=== PATIENT | female | born 1995 | race Caucasian/White ===

== ENCOUNTER 2024-02-26 10:23 | Emergency (ER) | payer OTHER, BC, SELFPAY ==
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
[2024-02-26 11:00] VITALS: BP 119/68; PULSE 86; RESP 16; TEMP 36.6; O2SAT 99
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
== END 2024-02-26 12:48 | disposition home or self-care (01) ==
PROVIDERS: Emergency Provider Nurse Practitioner Family
DX: S63.502A Unspecified sprain of left wrist, initial encounter (principal); S63.617A Unspecified sprain of left little finger, initial encounter; V43.52XA Car driver injured in collision with other type car in traffic accident, initial encounter
CPT/HCPCS: 29130; 73110; 73140; 99203; G0463

== ENCOUNTER 2024-03-07 05:17 | Emergency (ER) | payer BC, SELFPAY ==
--- NOTE | ~2024-03-07 | CT_ITS ---
EXAMINATION: CT abdomen pelvis w con DATE: 03/07/2024 08:11 INDICATION: Left lower quadrant abdominal pain. TECHNIQUE: Computed tomography (CT) of the abdomen and pelvis was performed with 100 mL Omnipaque 350 intravenous contrast. Automated exposure control and iterative reconstruction technique were employe d. The dose-length product was 314.16 mGy-cm. COMPARISON: None. FINDINGS: The visualized portions of the lung bases are clear without pneumonia or pleural effusion. The heart size is normal. No pericardial effusion. The liver, gallbladder, spleen, pancreas, adrenal glands, and right kidney are normal. There is a delayed left-sided contrast nephrogram. There is mild left hydronephrosis and hydroureter. There is a 2 mm stone at left ureterovesicular junction. There are no dilated loops of bowel. The appendix is normal. There are no pathologically enlarged lymph nod es. There is physiologic fluid in the pelvis. There is mild lumbar spondylosis. IMPRESSION: 1. 2 mm stone at left ureterovesicular junction with mild left hydronephrosis and hydroureter. Reviewed, dictated and finalized at location A. ORIZATION SPECIALIST
[2024-03-07 05:22] VITALS: BP 111/72; PULSE 61; RESP 19; TEMP 36.3; O2SAT 98
[2024-03-07 05:56] LABS: Basophils Absolute Auto 0.1 K/mm3 (0.0-0.1); Basophils Percent Auto 0.6 % (0.2-1.2); Eosinophils Absolute Auto 0.3 K/mm3 (0-0.3); Eosinophils Percent Auto 2.5 % (0-4.4); Hemoglobin 13.2 g/dL (12.0-15.0); Immature Granulocyte Absolute 0.05 K/mm3 (0.00-0.031); Immature Granulocyte Percent A 0.4 % (0-0.5); Lymphocytes Absolute Auto 3.57 K/mm3 (0.9-3.2); Lymphocytes Percent Auto 30.9 % (18.3-44.2); Mean Corpuscular HGB Conc 33.8 g/dl (32-36); Mean Corpuscular Hemoglobin 29.6 pg (26-34); Mean Corpuscular Volume 87.4 fl (80-100); Mean Platelet Volume 8.7 fl (7.4-10.4); Monocytes Absolute Auto 0.8 K/mm3 (0.1-0.6); Monocytes Percent Auto 7.1 % (2.6-8.5); Neutrophils Absolute Auto 6.8 K/mm3 (1.3-6.7); Neutrophils Percent Auto 58.5 % (45.5-73.1); Platelet Count Result 424 k/mm3 (150-375); Red Blood Count 4.46 M/mm3 (4.2-5.4); Red Cell Distribution Width 12.2 % (11.5-14.5); White Blood Count 11.6 K/mm3 (4.5-10.0)
[2024-03-07 06:06] LABS: Alanine Aminotransferase 15 U/L (6-35); Albumin Level 4.4 g/dL (3.5-5.1); Alkaline Phosphatase 88 U/L (38-126); Anion Gap 8 mmol/L (4-12); Aspartate Amino Transferase 23 U/L (14-36); Bilirubin,Total 0.6 mg/dL (0.2-1.3); Blood Urea Nitrogen 19 mg/dL (7-17); Calcium 9.1 mg/dL (8.4-10.2); Carbon Dioxide 20 mmol/L (22-30); Chloride 110 mmol/L (98-107); Estimated CRCL calculation 70 ml/min; Estimated Glomerular Filt Rate > 60; Glucose 108 mg/dL (65-110); Lipase 120 U/L (23-300); Potassium 3.8 mmol/L (3.4-5.0); Sodium 138 mmol/L (137-145)
[2024-03-07] MEDS: ONDANSETRON INJ 4 MG/2 ML VIAL IV PUSH (06:11)
[2024-03-07] MEDS: MORPHINE SULFATE (*CRX) 4 MG/ML INJ IV PUSH (06:12)
[2024-03-07] MEDS: SODIUM CHLORIDE 0.9% IV 1,000 ML 999 ML IV CONT (06:12)
--- NOTE | 2024-03-07 06:45 | ED.GENADULT ---
HPI - General Adult General Chief complaint: Nausea/Vomiting/Diarrhea <Toni Mills MD - Last Filed: 03/07/24 06:46> Stated complaint: Lower left back/abd pain, N/V <Toni Mills MD - Last Filed: 03/07/24 06:46> Time Seen by Provider: 03/07/24 06:41 <Toni Mills MD - Last Filed: 03/07/24 06:46> History of Present Illness HPI narrative: Patient 27-year-old female who presents emergency department with chief complaint of left flank and left lower quadrant pain. Patient reports this morning she had sudden onset of sharp pain in the left flank reports that radiates to the left lower quadrant the patient reports feels similar to whenever she has had kidney stones before in the past patient reports pain is not improved by anything reports she has had nausea with it as well <Toni Mills MD - Last Filed: 03/07/24 06:46> Related Data Home medications: Home Medications ?Medication ?Instructions ?Recorded ?Confirmed ?Last Taken ?Type escitalopram oxalate 20 mg tablet 20 mg PO DAILY 02/26/24 02/26/24 Unknown History hydroxyzine pamoate 25 mg capsule 25 mg PO Q6H PRN anxiety 02/26/24 02/26/24 Unknown History norethindrone 1 mg-ethinyl 1 tablet PO DAILY 02/26/24 02/26/24 Unknown History estradiol 20 mcg (21)-iron 75 mg (7) tablet (Aurovela Fe 1-20 (28)) <Toni Mills MD - Last Filed: 03/07/24 06:46> Allergies/adverse reactions: Allergies Allergy/AdvReac Type Severity Reaction Status Date / Time No Known Allergies Allergy Verified 03/07/24 05:18 <Toni Mills MD - Last Filed: 03/07/24 06:46> Review of Systems Review of Systems: A 10 system review of systems was completed on the patient and is negative except for what is stated in the HPI. Nursing and ancillary documentation was reviewed. <Toni Mills MD - Last Filed: 03/07/24 06:46> Exam Narrative: GENERAL: Well-appearing, well-nourished, and in moderate acute pain distress. HEAD: Normocephalic, atraumatic. EYES: PERRLA and EOMI. ENT: Nares clear, no rhinorrhea or epistaxis. Mucous membranes moist. NECK: Supple. CHEST: Clear to auscultation. No respiratory distress. HEART: Regular rate and rhythm. No murmur heard. Normal peripheral pulses. ABDOMEN: Soft, nontender, nondistended, normal active bowel sounds. EXTREMITIES: Normal range of motion. No edema. SKIN: Warm, dry, no rash. NEURO: No focal deficits. Alert and oriented x3. PSYCH: Normal mood and affect. <Toni Mills MD - Last Filed: 03/07/24 06:46> Course Vital Signs Vital signs: Vital Signs Temperature 97.4 F L 03/07/24 05:22 Pulse Rate 61 03/07/24 05:22 Respiratory Rate 19 03/07/24 05:22 Blood Pressure 111/72 03/07/24 05:22 Pulse Oximetry 98 03/07/24 05:22 Oxygen Delivery Room Air 03/07/24 05:22 Temperature 98.1 F 03/07/24 08:15 Pulse Rate 77 03/07/24 09:45 Respiratory Rate 15 03/07/24 09:45 Blood Pressure 121/67 03/07/24 09:45 Pulse Oximetry 100 03/07/24 09:45 Oxygen Delivery Room Air 03/07/24 05:22 <Toni Mills MD - Last Filed: 03/07/24 06:46> Vital Signs Temperature 97.4 F L 03/07/24 05:22 Pulse Rate 61 03/07/24 05:22 Respiratory Rate 19 03/07/24 05:22 Blood Pressure 111/72 03/07/24 05:22 Pulse Oximetry 98 03/07/24 05:22 Oxygen Delivery Room Air 03/07/24 05:22 Temperature 98.1 F 03/07/24 08:15 Pulse Rate 77 03/07/24 09:45 Respiratory Rate 15 03/07/24 09:45 Blood Pressure 121/67 03/07/24 09:45 Pulse Oximetry 100 03/07/24 09:45 Oxygen Delivery Room Air 03/07/24 05:22 <Raf Egan MD - Last Filed: 03/07/24 18:29> Medical Decision Making MDM Narrative Medical decision making narrative: Patient care was signed out to me by the overnight physician with CT pending. Patient is a 28-year-old female with history of kidney stones presented emergency department for evaluation for right flank pain. Patient is afebrile but does have a leukocytosis of 11.6 and hemoglobin of 13.2. No significant abnormalities on the patient's CMP UA did have blood with some white blood cells. Patient denies any actual pain with urination or dysuria. CT scan did show a right-sided 2 mm UVJ stone. On re-evaluation patient's pain is improved. Patient and family were updated on the results of the workup and treatment plan for home. All questions concerns were addressed. Patient will be started on Flomax, provided Zofran for nausea control an also provided additional narcotic pain medication. Patient will be provided follow-up with Dr. Blandon. <Raf Egan MD - Last Filed: 03/07/24 18:29> Differential Diagnosis Differential Diagnosis: Urinary tract infection, kidney stone, dysuria <Raf Egan MD - Last Filed: 03/07/24 18:29> Vital Signs Vital Signs: Vital Signs Temperature 97.4 F L 03/07/24 05:22 Pulse Rate 61 03/07/24 05:22 Respiratory Rate 19 03/07/24 05:22 Blood Pressure 111/72 03/07/24 05:22 Pulse Oximetry 98 03/07/24 05:22 Oxygen Delivery Room Air 03/07/24 05:22 Temperature 98.1 F 03/07/24 08:15 Pulse Rate 77 03/07/24 09:45 Respiratory Rate 15 03/07/24 09:45 Blood Pressure 121/67 03/07/24 09:45 Pulse Oximetry 100 03/07/24 09:45 Oxygen Delivery Room Air 03/07/24 05:22 <Toni Mills MD - Last Filed: 03/07/24 06:46> Vital Signs Temperature 97.4 F L 03/07/24 05:22 Pulse Rate 61 03/07/24 05:22 Respiratory Rate 19 03/07/24 05:22 Blood Pressure 111/72 03/07/24 05:22 Pulse Oximetry 98 03/07/24 05:22 Oxygen Delivery Room Air 03/07/24 05:22 Temperature 98.1 F 03/07/24 08:15 Pulse Rate 77 03/07/24 09:45 Respiratory Rate 15 03/07/24 09:45 Blood Pressure 121/67 03/07/24 09:45 Pulse Oximetry 100 03/07/24 09:45 Oxygen Delivery Room Air 03/07/24 05:22 <Raf Egan MD - Last Filed: 03/07/24 18:29> Lab Data Result diagrams: 03/07/24 05:50 03/07/24 05:50 <Toni Mills MD - Last Filed: 03/07/24 06:46> Labs: Lab Results 03/07/24 03/07/24 03/07/24 Range/Units 05:50 07:55 07:57 WBC 11.6 H (4.5-10.0) K/mm3 RBC 4.46 (4.2-5.4) M/mm3 Hgb 13.2 (12.0-15.0) g/dL Hct 39.0 (37.0-47.0) % MCV 87.4 (80-100) fl MCH 29.6 (26-34) pg MCHC 33.8 (32-36) g/dl RDW 12.2 (11.5-14.5) % Plt Count 424 H (150-375) k/mm3 MPV 8.7 (7.4-10.4) fl Immature Gran % (Auto) 0.4 (0-0.5) % Neut % (Auto) 58.5 (45.5-73.1) % Lymph % (Auto) 30.9 (18.3-44.2) % Lucas % (Auto) 7.1 (2.6-8.5) % Eos % (Auto) 2.5 (0-4.4) % Baso % (Auto) 0.6 (0.2-1.2) % Lymph # (Auto) 3.57 H (0.9-3.2) K/mm3 Lucas # (Auto) 0.8 H (0.1-0.6) K/mm3 Eos # (Auto) 0.3 (0-0.3) K/mm3 Baso # (Auto) 0.1 (0.0-0.1) K/mm3 Abs Immat Gran (auto) 0.05 H (0.00-0.031) K/mm3 Absolute Neuts (auto) 6.8 H (1.3-6.7) K/mm3 Absolute Nucleated RBC 0.000 (0.0-0.012) K/mm3 Nucleated RBC % 0.0 (0.0-0.2) % Sodium 138 (137-145) mmol/L Potassium 3.8 (3.4-5.0) mmol/L Chloride 110 H (98-107) mmol/L Carbon Dioxide 20 L (22-30) mmol/L Anion Gap 8 (4-12) mmol/L BUN 19 H (7-17) mg/dL Creatinine 1.00 (0.7-1.0) mg/dL Estim Creat Clear Calc 70 ml/min Estimated GFR > 60 (59 - ) Glucose 108 (65-110) mg/dL Calcium 9.1 (8.4-10.2) mg/dL Total Bilirubin 0.6 (0.2-1.3) mg/dL AST 23 (14-36) U/L ALT 15 (6-35) U/L Alkaline Phosphatase 88 (38-126) U/L Total Protein 8.0 (6.3-8.2) g/dL Albumin 4.4 (3.5-5.1) g/dL Lipase 120 (23-300) U/L Serum HCG, Qual Negative Urine Color Dark yellow (Yellow) Urine Appearance Cloudy H (Clear) Urine pH 6.5 (5.0-9.0) Ur Specific [place] 1.036 H (1.001-1.035) Urine Protein 1+ H (Negative) mg/dL Urine Glucose (UA) Negative (Negative) mg/dL Urine Ketones 1+ H (Negative) mg/dL Ur Blood (Man) 2+ H (Negative) Urine Nitrate Negative (Negative) Urine Bilirubin Negative (Negative) Urine Urobilinogen 1.0 (<2.0) mg/dL Add Ur Microanalysis Reviewed Leukocyte Esterase Rfl 1+ H (Negative) MALCOLM/UL Urine RBC 21-50 H (0-2) /hpf Urine WBC 21-50 H (0-3) /hpf Ur Squamous Epith Cells Moderate (Few) /hpf Urine Bacteria 1+ H /hpf Urine Casts 3-5 POC Urine HCG, Qual Negative (Negative) <Toni P. Lipsmeyer, MD - Last Filed: 03/07/24 06:46> Lab Results 03/07/24 03/07/24 03/07/24 Range/Units 05:50 07:55 07:57 WBC 11.6 H (4.5-10.0) K/mm3 RBC 4.46 (4.2-5.4) M/mm3 Hgb 13.2 (12.0-15.0) g/dL Hct 39.0 (37.0-47.0) % MCV 87.4 (80-100) fl MCH 29.6 (26-34) pg MCHC 33.8 (32-36) g/dl RDW 12.2 (11.5-14.5) % Plt Count 424 H (150-375) k/mm3 MPV 8.7 (7.4-10.4) fl Immature Gran % (Auto) 0.4 (0-0.5) % Neut % (Auto) 58.5 (45.5-73.1) % Lymph % (Auto) 30.9 (18.3-44.2) % Lucas % (Auto) 7.1 (2.6-8.5) % Eos % (Auto) 2.5 (0-4.4) % Baso % (Auto) 0.6 (0.2-1.2) % Lymph # (Auto) 3.57 H (0.9-3.2) K/mm3 Lucas # (Auto) 0.8 H (0.1-0.6) K/mm3 Eos # (Auto) 0.3 (0-0.3) K/mm3 Baso # (Auto) 0.1 (0.0-0.1) K/mm3 Abs Immat Gran (auto) 0.05 H (0.00-0.031) K/mm3 Absolute Neuts (auto) 6.8 H (1.3-6.7) K/mm3 Absolute Nucleated RBC 0.000 (0.0-0.012) K/mm3 Nucleated RBC % 0.0 (0.0-0.2) % Sodium 138 (137-145) mmol/L Potassium 3.8 (3.4-5.0) mmol/L Chloride 110 H (98-107) mmol/L Carbon Dioxide 20 L (22-30) mmol/L Anion Gap 8 (4-12) mmol/L BUN 19 H (7-17) mg/dL Creatinine 1.00 (0.7-1.0) mg/dL Estim Creat Clear Calc 70 ml/min Estimated GFR > 60 (59 - ) Glucose 108 (65-110) mg/dL Calcium 9.1 (8.4-10.2) mg/dL Total Bilirubin 0.6 (0.2-1.3) mg/dL AST 23 (14-36) U/L ALT 15 (6-35) U/L Alkaline Phosphatase 88 (38-126) U/L Total Protein 8.0 (6.3-8.2) g/dL Albumin 4.4 (3.5-5.1) g/dL Lipase 120 (23-300) U/L Serum HCG, Qual Negative Urine Color Dark yellow (Yellow) Urine Appearance Cloudy H (Clear) Urine pH 6.5 (5.0-9.0) Ur Specific [place] 1.036 H (1.001-1.035) Urine Protein 1+ H (Negative) mg/dL Urine Glucose (UA) Negative (Negative) mg/dL Urine Ketones 1+ H (Negative) mg/dL Ur Blood (Man) 2+ H (Negative) Urine Nitrate Negative (Negative) Urine Bilirubin Negative (Negative) Urine Urobilinogen 1.0 (<2.0) mg/dL Add Ur Microanalysis Reviewed Leukocyte Esterase Rfl 1+ H (Negative) MALCOLM/UL Urine RBC 21-50 H (0-2) /hpf Urine WBC 21-50 H (0-3) /hpf Ur Squamous Epith Cells Moderate (Few) /hpf Urine Bacteria 1+ H /hpf Urine Casts 3-5 POC Urine HCG, Qual Negative (Negative) <Raf Egan MD - Last Filed: 03/07/24 18:29> Discharge Plan Discharge Clinical Impression: Calculi, ureter <Toni Mills MD - Last Filed: 03/07/24 06:46> Patient Disposition: Home, Self-Care <Toni Mills MD - Last Filed: 03/07/24 06:46> Condition: Stable <Toni Mills MD - Last Filed: 12/26/24 06:46> Instructions: Antibiotic Form, Kidney Stones (ED), How to Strain Your Urine (ED), Flank Pain (ED) <Toni Mills MD - Last Filed: 03/07/24 06:46> Additional Instructions: Antibiotic as directed until completed. Zofran for nausea control. Ibuprofen for pain control. [place] as needed for additional pain control. Flomax as directed to help stone pass. Have close follow-up with Urology. If you have any worsening symptoms then please call or return to the emergency department. <Toni Mills MD - Last Filed: 03/07/24 06:46> Patient Language: Kinyarwanda <Toni Mills MD - Last Filed: 03/07/24 06:46> Prescriptions: New ondansetron 4 mg tablet,disintegrating 4 mg PO Q8H PRN (Reason: nausea and vomiting) Qty: 14 0RF tamsulosin [Flomax] 0.4 mg capsule 0.4 mg PO DAILY Qty: 10 0RF hydrocodone-acetaminophen 5-325 mg tablet 1 tablet PO Q12H PRN (Reason: pain) 7 Days Qty: 14 0RF No Action norethindrone-e.estradiol-iron [Aurovela Fe 1-20 (28)] 1 mg-20 mcg (21)/75 mg (7) tablet 1 tablet PO DAILY hydroxyzine pamoate 25 mg capsule 25 mg PO Q6H PRN (Reason: anxiety) escitalopram oxalate 20 mg tablet 20 mg PO DAILY <Toni Mills MD - Last Filed: 03/07/24 06:46> Follow-up/Referrals: PHYSICIAN,DEVULCANIZER OPERATOR [Primary Care Provider] - Jimenez Blandon MD [Physician] - <Toni Mills MD - Last Filed: 03/07/24 06:46>
[2024-03-07] MEDS: HYDROmorphone HCL INJ (*CRX) 1 MG/ML SYR IV PUSH ×2 (06:47→08:16)
[2024-03-07] MEDS: PROCHLORPERAZINE EDISYLATE 10 MG/2 ML VIAL IV PUSH (06:50)
[2024-03-07 07:58] LABS: SPREG INTERNAL CONTROL Positive; Serum Qual hCG Negative
[2024-03-07 07:58] LABS: BEDSIDEPREGUCG Negative (Negative)
[2024-03-07 08:14] LABS: Add Urine Microscopic? YES; Appearance Urine Cloudy (Clear); Bacteria Urine 1+ /hpf; Bilirubin Urine Negative (Negative); Blood Urine 2+ (Negative); Color Urine Dark Yellow (Yellow); Glucose Urine UA Negative (Negative); Ketones Urine 1+ mg/dL (Negative); Leukocyte Esterase Ur 1+ LEU/UL (Negative); Need Manual Microscopic Reviewed; Nitrate Urine Negative (Negative); Protein Urine 1+ mg/dL (Negative); RBC Urine 21-50 /hpf (0-2); Specific Grav Ur 1.036 (1.001-1.035); Squamous Epithelial Cell Urine Moderate /hpf (Few); WBC Urine 21-50 /hpf (0-3); pH Urine 6.5 (5.0-9.0)
[2024-03-07 08:15] VITALS: BP 123/96; PULSE 74; RESP 17; TEMP 36.7; O2SAT 98
[2024-03-07] MEDS: KETOROLAC 15 MG/ML VIAL (*BKC) IV PUSH (08:37)
[2024-03-07] MEDS: HYDROcodone/acetaminophen (*CRX) 5-325 MG TABLET 1 TAB PO (09:37)
[2024-03-07] MEDS: TAMSULOSIN HCL 0.4 MG CAPSULE PO (09:38)
[2024-03-07 09:45] VITALS: BP 121/67; PULSE 77; RESP 15; O2SAT 100
== END 2024-03-07 09:45 | disposition home or self-care (01) ==
PROVIDERS: Emergency Medicine; Emergency Provider Emergency Medicine
DX: N20.1 Calculus of ureter (principal)
CPT/HCPCS: 36415; 74177; 80053; 81001; 81025; 83690; 84703; 85025; 87086; 96361; 96374; 96375; 96376; 99284; A9270; J0780; J1171; J1885; J2270; J2405; J7030; Q9967

== ENCOUNTER 2025-02-27 09:11 | Emergency (ER) | payer OTHER, BC, SELFPAY ==
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
[2025-02-27 09:11] VITALS: BP 128/70; PULSE 55; RESP 14; TEMP 36.6; O2SAT 100
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
[2025-02-27] MEDS: MORPHINE SULFATE (*CRX) 4 MG/ML INJ IV PUSH (10:22)
[2025-02-27] MEDS: ONDANSETRON INJ 4 MG/2 ML VIAL IV PUSH (10:22)
[2025-02-27 10:23] LABS: Hematocrit 41.0 % (37.0-47.0); Hemoglobin 13.5 g/dL (12.0-15.0); Immature Granulocyte Percent A 1.5 % (0-0.5); Lymphocytes Absolute Auto 2.24 K/mm3 (0.9-3.2); Mean Corpuscular HGB Conc 32.9 g/dl (32-36); Mean Corpuscular Hemoglobin 29.7 pg (26-34); Mean Corpuscular Volume 90.1 fl (80-100); Nucleated Red Blood Cells Absolute Auto 0.000 K/mm3 (0.0-0.012); Nucleated Red Blood Cells Perc 0.0 % (0.0-0.2); Platelet Count Result 392 k/mm3 (150-375); Red Blood Count 4.55 M/mm3 (4.2-5.4); White Blood Count 11.4 K/mm3 (4.5-10.0)
[2025-02-27 10:25] LABS: Estimated CRCL calculation 79 ml/min; Estimated Glomerular Filt Rate > 60
[2025-02-27 10:28] LABS: Pregnancy On Board Control Positive
[2025-02-27 10:29] LABS: INR 1.0; Partial Thromboplastin Time 27.5 Seconds (22.3-36.8); Prothrombin Time 13.7 Seconds (11.1-14.7)
[2025-02-27 10:37] LABS: Alanine Aminotransferase 31 U/L (6-35); Albumin Level 4.6 g/dL (3.5-5.1); Alkaline Phosphatase 74 U/L (38-126); Anion Gap 11 mmol/L (4-12); Aspartate Amino Transferase 32 U/L (14-36); Bilirubin,Total 1.0 mg/dL (0.2-1.3); Blood Urea Nitrogen 14 mg/dL (7-17); Calcium 9.8 mg/dL (8.4-10.2); Carbon Dioxide 17 mmol/L (22-30); Chloride 111 mmol/L (98-107); Estimated CRCL calculation 79 ml/min; Estimated Glomerular Filt Rate > 60; Glucose 102 mg/dL (65-110); Potassium 3.8 mmol/L (3.4-5.0); Sodium 139 mmol/L (137-145); Total Protein 8.3 g/dL (6.3-8.2)
[2025-02-27 11:27] VITALS: BP 109/66; PULSE 56; RESP 15; O2SAT 100
[2025-02-27] MEDS: fentaNYL CITRATE INJ (*CRX) 100 MCG/2 ML VIAL 50 MCG IV PUSH (12:22)
[2025-02-27] MEDS: LIDOCAINE 1% LOCAL INJ 10 ML VIAL INFILTRATE (12:39)
--- OUTSIDE RECORDS SUMMARY | 2025-02-27 13:17 | XMS_ITS | Encounter Summary ---
Author Organization [facility] Address [address] [place] [address] Care Team Providers Care Towboat Pilot Name Role Phone Janeen Landon MD Primary Care [facility] ider Encounter Details Date Type Department Care Team (Late Contact Info) Description 12/22/1998 Outpatient Historical [facility] [place] [address] [place] [place] [phone] Kirit Escobar MD NO ADDRESS ON FILE Social History Tobacco Use Types Packs/Day Years Used Date Smoking Tobacco: Never Assessed Comments Unknown Sex and Gender Information Value Date Recorded Sex Assigned at Not on file 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 Gender Identity Not on file Sexual Orientation Not on file documented as of this encounter Plan of Treatment Upcoming Encounters Date Type Department Care Team (Late Contact Info) Description 09/02/2025 9:30 AM CDT Office Visit [facility] [address] [place] [address] Janeen Landon MD [address] [place] [phone] documented as of this encounter Visit Diagnoses Not on filedocumented in this encounter Care Teams Towboat Pilot Relationship Specialty Start Date End Date Janeen Landon MD [address] [place], [place] [address] [place] [address] PCP - General Family Practice 12/05/23 documented as of this encounter
--- OUTSIDE RECORDS SUMMARY | 2025-02-27 13:17 | XMS_ITS | Encounter Summary ---
Author Organization [facility] Address [address] [place] [address] Care Team Providers Care Athletic Trainer Name Role Phone Janeen Landon MD Primary Care [facility] ider Encounter Details Date Type Department Care Team (Late Contact Info) Description 02/25/2000 Outpatient Historical [facility] Pediatric[facility] [place] [address] [facility] [place] [phone] Kirit Escobar MD NO ADDRESS ON FILE Social History Tobacco Use Types Packs/Day Years Used Date Smoking Tobacco: Never Assessed Comments Unknown Sex and Gender Information Value Date Recorded Sex Assigned at Not on file 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 Gender Identity Not on file Sexual Orientation Not on file documented as of this encounter Plan of Treatment Upcoming Encounters Date Type Department Care Team (Late Contact Info) Description 09/02/2025 9:30 AM CDT Office Visit [facility] [address] [place] [address] Janeen Landon MD [address] [place] [phone] documented as of this encounter Visit Diagnoses Not on filedocumented in this encounter Care Teams Athletic Trainer Relationship Specialty Start Date End Date Janeen Landon MD [address] [place], [place] [address] [place] [address] PCP - General Family Practice 12/05/23 documented as of this encounter
--- OUTSIDE RECORDS SUMMARY | 2025-02-27 13:17 | XMS_ITS | Encounter Summary ---
Author Organization [facility] Address [address] [place] [address] Care Team Providers Care Insert Cutter Name Role Phone Janeen Landon MD Primary Care [facility] ider Encounter Details Date Type Department Care Team (Late Contact Info) Description 04/28/[address] 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 Gender Identity Not on file Sexual Orientation Not on file documented as of this encounter Plan of Treatment Upcoming Encounters Date Type Department Care Team (Late Contact Info) Description 09/02/2025 9:30 AM CDT Office Visit [facility] [address] [place] [address] Janeen Landon MD [address] [place] [phone] documented as of this encounter Visit Diagnoses Not on filedocumented in this encounter Care Teams Insert Cutter Relationship Specialty Start Date End Date Janeen Landon MD [address] [place], [place] [address] [place] [address] PCP - General Family Practice 12/05/23 documented as of this encounter
--- OUTSIDE RECORDS SUMMARY | 2025-02-27 13:17 | XMS_ITS | Encounter Summary ---
Author Organization [facility] Address [address] [place] [address] Care Team Providers Care Nutrition Club Ambassador Name Role Phone Janeen Landon MD Primary Care [facility] ider Encounter Details Date Type Department Care Team (Late Contact Info) Description 06/05/2003 Outpatient Historical [facility] Pediatric[facility] [place] [address] [facility] [place] [phone] Kirit Escobar MD NO ADDRESS ON FILE Social History Tobacco Use Types Packs/Day Years Used Date Smoking Tobacco: Never Assessed Comments Unknown Sex and Gender Information Value Date Recorded Sex Assigned at Not on file Legal Sex Female 4:38 AM CONTACT LENS LATHE OPERATOR Gender Identity Not on file Sexual Orientation Not on file documented as of this encounter Plan of Treatment Upcoming Encounters Date Type Department Care Team (Late Contact Info) Description 09/02/2025 9:30 AM CDT Office Visit [facility] [address] [place] [address] Janeen Landon MD [address] [place] [phone] documented as of this encounter Visit Diagnoses Not on filedocumented in this encounter Care Teams Nutrition Club Ambassador Relationship Specialty Start Date End Date Janeen Landon MD [address] [place], [place] [address] [place] [address] PCP - General Family Practice 12/05/23 documented as of this encounter
--- OUTSIDE RECORDS SUMMARY | 2025-02-27 13:17 | XMS_ITS | Encounter Summary ---
Author Organization [facility] Address [address] [place] [address] Care Team Providers Care Swamper Name Role Phone Janeen Landon MD Primary Care [facility] ider Encounter Details Date Type Department Care Team (Late Contact Info) Description 04/16/2002 Outpatient Historical [facility] [place] [address] [facility] [address] Kirit Escobar MD NO ADDRESS ON FILE Social History Tobacco Use Types Packs/Day Years Used Date Smoking Tobacco: Never Assessed Comments Unknown Sex and Gender Information Value Date Recorded Sex Assigned at Not on file Legal Sex Female 4:38 AM SVP GROUP DIRECTOR Gender Identity Not on file Sexual Orientation Not on file documented as of this encounter Plan of Treatment Upcoming Encounters Date Type Department Care Team (Late Contact Info) Description 09/02/2025 9:30 AM CDT Office Visit [facility] [address] [place] [address] Janeen Landon MD [address] [place] [phone] documented as of this encounter Visit Diagnoses Not on filedocumented in this encounter Care Teams Swamper Relationship Specialty Start Date End Date Janeen Landon MD [address] [place], [place] [address] [place] [address] PCP - General Family Practice 12/05/23 documented as of this encounter
--- OUTSIDE RECORDS SUMMARY | 2025-02-27 13:17 | XMS_ITS | Encounter Summary ---
Author Organization [facility] Address [address] [place] [address] Care Team Providers Care Relief Map Modeler Name Role Phone Janeen Landon MD Primary Care [facility] ider Encounter Details Date Type Department Care Team (Late Contact Info) Description 04/23/1998 Outpatient Historical [facility] [place] [address] [facility] [place] [address] Kirit Escobar MD NO ADDRESS ON FILE Social History Tobacco Use Types Packs/Day Years Used Date Smoking Tobacco: Never Assessed Comments Unknown Sex and Gender Information Value Date Recorded Sex Assigned at Not on file Legal Sex Female 4:38 AM REHABILITATION SERVICES COUNSELOR Gender Identity Not on file Sexual Orientation Not on file documented as of this encounter Plan of Treatment Upcoming Encounters Date Type Department Care Team (Late Contact Info) Description 09/02/2025 9:30 AM CDT Office Visit [facility] [address] [place] [address] Janeen Landon MD [address] [place] [phone] documented as of this encounter Visit Diagnoses Not on filedocumented in this encounter Care Teams Relief Map Modeler Relationship Specialty Start Date End Date Janeen Landon MD [address] [place], [place] [address] [place] [address] PCP - General Family Practice 12/05/23 documented as of this encounter
--- OUTSIDE RECORDS SUMMARY | 2025-02-27 13:17 | XMS_ITS | Encounter Summary ---
Author Organization [facility] Address [address] [place] [address] Care Team Providers Care Bending Machine Set Up Operator Name Role Phone Janeen Landon MD Primary Care 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 Gender Identity Not on file Sexual Orientation Not on file documented as of this encounter Plan of Treatment Upcoming Encounters Date Type Department Care Team (Late Contact Info) Description 09/02/2025 9:30 AM CDT Office Visit [facility] [address] [place] [address] Janeen Landon MD [address] [place] [phone] documented as of this encounter Visit Diagnoses Not on filedocumented in this encounter Care Teams Bending Machine Set Up Operator Relationship Specialty Start Date End Date Janeen Landon MD [address] [place], [place] [address] [place] [address] PCP - General Family Practice 12/05/23 documented as of this encounter
--- OUTSIDE RECORDS SUMMARY | 2025-02-27 13:17 | XMS_ITS | Encounter Summary ---
Author Organization [facility] Address [address] [place] [address] Care Team Providers Care Printmaker Name Role Phone Janeen Landon MD Primary Care [facility] ider Encounter Details Date Type Department Care Team (Late Contact Info) Description 05/29/2000 Outpatient Historical [facility] Pediatric[facility] [place] [address] [place] [phone] Kirit Escobar MD NO ADDRESS ON FILE Social History Tobacco Use Types Packs/Day Years Used Date Smoking Tobacco: Never Assessed Comments Unknown Sex and Gender Information Value Date Recorded Sex Assigned at Not on file Legal Sex Female 4:38 AM PROGRAM PARAPROFESSIONAL Gender Identity Not on file Sexual Orientation Not on file documented as of this encounter Plan of Treatment Upcoming Encounters Date Type Department Care Team (Late Contact Info) Description 09/02/2025 9:30 AM CDT Office Visit [facility] [address] [place] [address] Janene Landon MD [address] [place] [phone] documented as of this encounter Visit Diagnoses Not on filedocumented in this encounter Care Teams Printmaker Relationship Specialty Start Date End Date Janeen Landon MD [address] [place], [place] [address] [place] [address] PCP - General Family Practice 12/05/23 documented as of this encounter
--- OUTSIDE RECORDS SUMMARY | 2025-02-27 13:17 | XMS_ITS | Encounter Summary ---
Author Organization [facility] Address [address] [place] [address] Care Team Providers Care Filament Shaper Name Role Phone Janeen Landon MD Primary Care [facility] ider Encounter Details Date Type Department Care Team (Late Contact Info) Description 05/22/1998 Outpatient Historical [facility] Pediatrics [place] [address] [facility] [place] [address] Kirit Escobar MD NO ADDRESS ON FILE Social History Tobacco Use Types Packs/Day Years Used Date Smoking Tobacco: Never Assessed Comments Unknown Sex and Gender Information Value Date Recorded Sex Assigned at Not on file 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 Gender Identity Not on file Sexual Orientation Not on file documented as of this encounter Plan of Treatment Upcoming Encounters Date Type Department Care Team (Late Contact Info) Description 09/02/2025 9:30 AM CDT Office Visit [facility] [address] [place] [address] Janeen Landon MD [address] [place] [phone] documented as of this encounter Visit Diagnoses Not on filedocumented in this encounter Care Teams Filament Shaper Relationship Specialty Start Date End Date Janeen Landon MD [address] [place], [place] [address] [place] [address] PCP - General Family Practice 12/05/23 documented as of this encounter
--- OUTSIDE RECORDS SUMMARY | 2025-02-27 13:17 | XMS_ITS | Encounter Summary ---
Author Organization [facility] Address [address] [place] [address] Care Team Providers Care Fire Protection Equipment Technician Name Role Phone Janeen Landon MD Primary Care [facility] ider Encounter Details Date Type Department Care Team (Late Contact Info) Description 02/03/2003 Outpatient Historical [facility] Pediatric[facility] [place] [address] [facility] [place] [address] Kirit Escobar MD NO ADDRESS ON FILE Social History Tobacco Use Types Packs/Day Years Used Date Smoking Tobacco: Never Assessed Comments Unknown Sex and Gender Information Value Date Recorded Sex Assigned at Not on file Legal Sex Female 4:38 AM CURTAIN STITCHER Gender Identity Not on file Sexual Orientation Not on file documented as of this encounter Plan of Treatment Upcoming Encounters Date Type Department Care Team (Late Contact Info) Description 09/02/2025 9:30 AM CDT Office Visit [facility] [address] [place] [address] Janeen Landon MD [address] [place] [phone] documented as of this encounter Visit Diagnoses Not on filedocumented in this encounter Care Teams Fire Protection Equipment Technician Relationship Specialty Start Date End Date Janeen Landon MD [address] [place], [place] [address] [place] [address] PCP - General Family Practice 12/05/23 documented as of this encounter
--- OUTSIDE RECORDS SUMMARY | 2025-02-27 13:17 | XMS_ITS | Encounter Summary ---
Author Organization [facility] Address [address] [place] [address] Care Team Providers Care Service Desk Team Lead Name Role Phone Janeen Landon MD Primary Care [facility] ider Encounter Details Date Type Department Care Team (Late Contact Info) Description 10/10/2000 Outpatient Historical [facility] [place] [address] [facility] [phone] Kirit Escobar MD NO ADDRESS ON FILE Social History Tobacco Use Types Packs/Day Years Used Date Smoking Tobacco: Never Assessed Comments Unknown Sex and Gender Information Value Date Recorded Sex Assigned at Not on file Legal Sex Female 4:38 AM PASTRY DECORATOR Gender Identity Not on file Sexual Orientation Not on file documented as of this encounter Plan of Treatment Upcoming Encounters Date Type Department Care Team (Late Contact Info) Description 09/02/2025 9:30 AM CDT Office Visit [facility] PRIMARY CARE [facility] [address] [place] [address] Janeen Landon MD [address] [place] [phone] documented as of this encounter Visit Diagnoses Not on filedocumented in this encounter Care Teams Service Desk Team Lead Relationship Specialty Start Date End Date Janeen Landon MD [address] [place], [place] [address] [place] [address] PCP - General Family Practice 12/05/23 documented as of this encounter
--- OUTSIDE RECORDS SUMMARY | 2025-02-27 13:17 | XMS_ITS | Encounter Summary ---
Author Organization [facility] Address [address] [place] [address] Care Team Providers Care Instrument Lens Inspector Name Role Phone Janeen Landon MD Primary Care [facility] ider Encounter Details Date Type Department Care Team (Late Contact Info) Description 07/21/2000 Emergency [facility], Authorized P NO ADDRESS ON FILE Injury, other and unspecified, shoulder and upper arm (Primary Dx) Social History Tobacco Use Types Packs/Day Years Used Date Smoking Tobacco: Never Assessed Comments Unknown Sex and Gender Information Value Date Recorded Sex Assigned at Not on file Legal Sex Female 4:38 AM ETHERNET NETWORK ARCHITECT Gender Identity Not on file Sexual Orientation Not on file documented as of this encounter Plan of Treatment Upcoming Encounters Date Type Department Care Team (Late Contact Info) Description 09/02/2025 9:30 AM CDT Office Visit [facility] [address] [address] Janeen Landon MD [address] [place] [phone] documented as of this encounter Visit Diagnoses Diagnosis Injury, other and unspecified, shoulder and upper arm- Primary documented in this encounter Care Teams Instrument Lens Inspector Relationship Specialty Start Date End Date Janeen Landon MD [address] [place] [phone] PCP - General Family Practice 12/05/23 documented as of this encounter
--- OUTSIDE RECORDS SUMMARY | 2025-02-27 13:17 | XMS_ITS | Encounter Summary ---
Author Organization [facility] Address [address] [place] [address] Care Team Providers Care Automobile Mechanic Radiator Name Role Phone Janeen Landon MD Primary Care [facility] ider Encounter Details Date Type Department Care Team (Late Contact Info) Description 11/09/[address] 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 Gender Identity Not on file Sexual Orientation Not on file documented as of this encounter Plan of Treatment Upcoming Encounters Date Type Department Care Team (Late Contact Info) Description 09/02/2025 9:30 AM CDT Office Visit [facility] PRIMARY CARE [facility] [address] [place] [address] Janeen Landon MD [address] [place] [phone] documented as of this encounter Visit Diagnoses Not on filedocumented in this encounter Care Teams Automobile Mechanic Radiator Relationship Specialty Start Date End Date Janeen Landon MD [address] [place], [place] [address] [place] [address] PCP - General Family Practice 12/05/23 documented as of this encounter
--- OUTSIDE RECORDS SUMMARY | 2025-02-27 13:17 | XMS_ITS | Encounter Summary ---
Author Organization [facility] Address [address] [place] [address] Care Team Providers Care Micromatic Hone Operator Name Role Phone Janeen Landon MD Primary Care [facility] ider Encounter Details Date Type Department Care Team (Late Contact Info) Description 05/13/2003 Outpatient Historical [facility] Pediatrics [place] [address] [facility] [place] [phone] Kirit Escobar MD NO ADDRESS ON FILE Social History Tobacco Use Types Packs/Day Years Used Date Smoking Tobacco: Never Assessed Comments Unknown Sex and Gender Information Value Date Recorded Sex Assigned at Not on file 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 Gender Identity Not on file Sexual Orientation Not on file documented as of this encounter Plan of Treatment Upcoming Encounters Date Type Department Care Team (Late Contact Info) Description 09/02/2025 9:30 AM CDT Office Visit [facility] PRIMARY CARE [facility] [address] [place] [address] Janeen Landon MD [address] [place] [phone] documented as of this encounter Visit Diagnoses Not on filedocumented in this encounter Care Teams Micromatic Hone Operator Relationship Specialty Start Date End Date Janeen Landon MD [address] [place], [place] [address] [place] [address] PCP - General Family Practice 12/05/23 documented as of this encounter
--- OUTSIDE RECORDS SUMMARY | 2025-02-27 13:17 | XMS_ITS | Encounter Summary ---
Author Organization [facility] Address [address] [place] [address] Care Team Providers Care Respiratory Practitioner Name Role Phone Janeen Landon MD Primary Care [facility] ider Encounter Details Date Type Department Care Team (Late Contact Info) Description 05/01/2002 Outpatient Historical [facility] Pediatrics [place] [address] [facility] [place] [phone] Kirit Escobar MD NO ADDRESS ON FILE Social History Tobacco Use Types Packs/Day Years Used Date Smoking Tobacco: Never Assessed Comments Unknown Sex and Gender Information Value Date Recorded Sex Assigned at Not on file 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 Gender Identity Not on file Sexual Orientation Not on file documented as of this encounter Plan of Treatment Upcoming Encounters Date Type Department Care Team (Late Contact Info) Description 09/02/2025 9:30 AM CDT Office Visit [facility] PRIMARY CARE [facility] [address] [place] [address] Janeen Landon MD [address] [place] [phone] documented as of this encounter Visit Diagnoses Not on filedocumented in this encounter Care Teams Respiratory Practitioner Relationship Specialty Start Date End Date Janeen Landon MD [address] [place], [place] [address] [place] [address] PCP - General Family Practice 12/05/23 documented as of this encounter
--- OUTSIDE RECORDS SUMMARY | 2025-02-27 13:18 | XMS_ITS | Encounter Summary ---
Author Organization [facility] Address [address] [place] [address] Care Team Providers Care Casino Floor Walker Name Role Phone Janeen Landon MD Primary Care [facility] ider Encounter Details Date Type Department Care Team (Late Contact Info) Description 02/28/[address] 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 Gender Identity Not on file Sexual Orientation Not on file documented as of this encounter Plan of Treatment Upcoming Encounters Date Type Department Care Team (Late st Contact Info) Description 09/02/2025 9:30 AM CDT Office Visit [facility] PRIMARY CARE [address] [address] Janeen Landon MD [address] [place] [phone] documented as of this encounter Visit Diagnoses Not on filedocumented in this encounter Care Teams Casino Floor Walker Relationship Specialty Start Date End Date Janeen Landon MD [address] [place] [phone] PCP - General Family Practice 12/05/23 documented as of this encounter
--- OUTSIDE RECORDS SUMMARY | 2025-02-27 13:18 | XMS_ITS | Encounter Summary ---
Author Organization [facility] Address [address] [place] [address] Care Team Providers Care Saute Chef Name Role Phone Janeen Landon MD Primary Care [facility] ider Encounter Details Date Type Department Care Team (Late Contact Info) Description 04/09/1998 Outpatient Historical [facility] Pediatrics [place] [address] [place] [address] Kirit Escobar MD NO ADDRESS ON FILE Social History Tobacco Use Types Packs/Day Years Used Date Smoking Tobacco: Never Assessed Comments Unknown Sex and Gender Information Value Date Recorded Sex Assigned at Not on file 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 Gender Identity Not on file Sexual Orientation Not on file documented as of this encounter Plan of Treatment Upcoming Encounters Date Type Department Care Team (Late Contact Info) Description 09/02/2025 9:30 AM CDT Office Visit [facility] PRIMARY CARE [facility] [address] [place] [address] Janeen Landon MD [address] [place] [phone] documented as of this encounter Visit Diagnoses Not on filedocumented in this encounter Care Teams Saute Chef Relationship Specialty Start Date End Date Janeen Landon MD [address] [place], [place] [address] [place] [address] PCP - General Family Practice 12/05/23 documented as of this encounter
--- OUTSIDE RECORDS SUMMARY | 2025-02-27 13:19 | XMS_ITS | Encounter Summary ---
Author Organization [facility] Address [address] [place] [address] Care Team Providers Care Ammonia Box Tender Name Role Phone Janeen Landon MD Primary Care [facility] ider Encounter Details Date Type Department Care Team (Late Contact Info) Description 01/10/2004 Outpatient Historical [facility] Pediatrics [place] [address] [facility] [place] [address] Kirit Escobar MD NO ADDRESS ON FILE Social History Tobacco Use Types Packs/Day Years Used Date Smoking Tobacco: Never Assessed Comments Unknown Sex and Gender Information Value Date Recorded Sex Assigned at Not on file 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 Gender Identity Not on file Sexual Orientation Not on file documented as of this encounter Plan of Treatment Upcoming Encounters Date Type Department Care Team (Late Contact Info) Description 09/02/2025 9:30 AM CDT Office Visit [facility] PRIMARY CARE [facility] [address] [place] [address] Janeen Landon MD [address] [place] [phone] documented as of this encounter Visit Diagnoses Not on filedocumented in this encounter Care Teams Ammonia Box Tender Relationship Specialty Start Date End Date Janeen Landon MD [address] [place], [place] [address] [place] [address] PCP - General Family Practice 12/05/23 documented as of this encounter
--- OUTSIDE RECORDS SUMMARY | 2025-02-27 13:19 | XMS_ITS | Encounter Summary ---
Author Organization [facility] Address 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 ALLERGIES: CURRENT ALLERGY LIST: no CHIEF COMPLAINT: The child here for evaluation of congestion, fever, headache. HISTORY: HPI: URI: The upper respiratory symptoms began approximately 3 days ago. The degree of the fever has been up to 100, the patient has nasal congestion, symptoms include headache, symptoms of sore throat. The symptoms have been worsening. Sib + strep last week Also has occasional pain R chest; not assoc c exercise; no MADHU sxs. Very brief catch. PHYSICAL EXAM: CONSTITUTIONAL: GENERAL APPEARANCE: Healthy appearing, alert patient, normally nourished, developmentally normal and in no acute distress. EYES: CONJUNCTIVA/LIDS: Conjunctivae and lids appear normal. EARS, NOSE, MOUTH AND THROAT: EARS: Tympanic membranes shiny without retraction. Canals unremarkable. Hearing grossly normal. NOSE (AND SINUS): The nasal mucosa is swollen. ORAL: OROPHARYNX ERYTHEMATOUS. NECK: No lymphadenopathy noted. Supple. RESPIRATORY: Clear to auscultation. Normal respiratory effort. CARDIOVASCULAR: CARDIAC: Regular rhythm with no murmurs, rubs, gallops, or abnormal heart sounds. GASTROINTESTINAL: ABDOMEN: Soft, non-tender, without masses. Bowel sound active. LYMPHATICS: A NON-TENDER, ENLARGED SUBMANDIBULAR LYMPH NODE NOTED BILATERALLY. SKIN: INSPECTION: Good color, no rashes, birthmarks or lesions noted on arms, chest or abdomen. NEUROLOGIC: GENERAL APPEARANCE: Negative meningeal signs. OFFICE PROCEDURE: RAPID STREP: The rapid strep test done in the office was POSITIVE. ASSESSMENT/PLAN: 034.0-STREPTOCOCCAL SORE THROAT MEDICATIONS: AMOXICILLIN ORAL SUSPENSION WHEN RECONSTITUTED 250 MG/5ML MILLILITERS, 3 tsp po bid for 10 days, 300 Dispensed, status: CONTINUED, 07/20/2006. Minor, occasional chest pain. Normal exam today. Observe; discussed CXR and EKG if cont'd or increased sxs. RETURN VISIT/GUIDANCE: Patient is to return on an as needed basis or to call with concerns or changes in condition. Electronically Signed by: Kirit Escobar MD on July documented in this encounter Plan of Treatment Upcoming Encounters Date Type Department Care Team (Late st Contact Info) Description 09/02/2025 9:30 AM CDT Office Visit [facility] PRIMARY CARE [address] [phone] Janeen Landon MD [address] [place] [phone] documented as of this encounter Visit Diagnoses Not on filedocumented in this encounter Care Teams Car Filler Relationship Specialty Start Date End Date Janeen Landon MD [address] [place] [phone] PCP - General Family Practice 12/05/23 documented as of this encounter
--- OUTSIDE RECORDS SUMMARY | 2025-02-27 13:19 | XMS_ITS | Encounter Summary ---
Author Organization [facility] Address [address] [place] [address] Care Team Providers Care Composition Weatherboard Applier Name Role Phone Janeen Landon MD Primary Care [facility] ider Encounter Details Date Type Department Care Team (Late Contact Info) Description 07/20/2006 Outpatient Historical [facility] Pediatrics [place] [address] [facility] [place] [address] Kirit Escobar MD NO ADDRESS ON FILE Social History Tobacco Use Types Packs/Day Years Used Date Smoking Tobacco: Never Assessed Comments Unknown Sex and Gender Information Value Date Recorded Sex Assigned at Not on file 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 Gender Identity Not on file Sexual Orientation Not on file documented as of this encounter Last Filed Vital Signs Vital Sign Reading Time Taken Comments Blood Pressure - - Pulse - - Temperature 36.4 C (97.5 F) 07/20/2006 10:40 AM CDT Respiratory Rate - - Oxygen Saturation - - Inhaled Oxygen Concentration - - Weight - - Height - - Body Mass Index - - documented in this encounter Plan of Treatment Upcoming Encounters Date Type Department Care Team (Late Contact Info) Description 09/02/2025 9:30 AM CDT Office Visit [facility] PRIMARY CARE [address] [address] Janeen Landon MD [address] [place] [phone] documented as of this encounter Visit Diagnoses Not on filedocumented in this encounter Care Teams Composition Weatherboard Applier Relationship Specialty Start Date End Date Janeen Landon MD [address] [place] [address] PCP - General Family Practice 12/05/23 documented as of this encounter
--- OUTSIDE RECORDS SUMMARY | 2025-02-27 13:19 | XMS_ITS | Encounter Summary ---
Author Organization [facility] Address [address] [place] [address] Care Team Providers Care Air Control Electronics Operator Name Role Phone Janeen Landon MD Primary Care [facility] ider Encounter Details Date Type Department Care Team (Late Contact Info) Description 10/11/1997 Outpatient Historical [facility] Pediatrics [place] [address] [facility] [place] [phone] Kirit Escobar MD NO ADDRESS ON FILE Social History Tobacco Use Types Packs/Day Years Used Date Smoking Tobacco: Never Assessed Comments Unknown Sex and Gender Information Value Date Recorded Sex Assigned at Not on file 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 Gender Identity Not on file Sexual Orientation Not on file documented as of this encounter Plan of Treatment Upcoming Encounters Date Type Department Care Team (Late Contact Info) Description 09/02/2025 9:30 AM CDT Office Visit [facility] PRIMARY CARE [facility] [address] [place] [address] Janeen Landon MD [address] [place] [phone] documented as of this encounter Visit Diagnoses Not on filedocumented in this encounter Care Teams Air Control Electronics Operator Relationship Specialty Start Date End Date Janeen Landon MD [address] [place], [place] [address] [place] [address] PCP - General Family Practice 12/05/23 documented as of this encounter
--- OUTSIDE RECORDS SUMMARY | 2025-02-27 13:19 | XMS_ITS | Clinical Summary ---
Author Organization [facility] Address [address] [place] [address] Care Team Providers Care Experimental Outboard Motors Mechanic Name Role Phone Cesilia Contreras MD Primary Care Provider [phone] Source Comments [facility],non-owned Affiliates and Associated Physician Practices is amultiple site organization consisting of ambulatory clinics and hospital sitesin [place], [place], [place] and [place]. This disclosure is being madepursuant to the Care Everywhere program and may not contain all information available regarding this patient. Last updated 17.[facility] Allergies No known active allergies Immunizations Immunization Administration Dates Next Due INFLUENZA VACCINE, QUADR. (F LUZONE; FLULAVAL; FLUARIX; AFLURIA QUADRIVALENT; 6MO+), 0.5 ML (IIV4) 01/09/2017 Social History Tobacco Use Types Packs/Day Years Used Date Smoking Tobacco: Never Assessed Comments Unknown Sex and Gender Information Value Date Recorded Sex Assigned at Not on file Legal Sex Female 5:19 AM HACK DRIVER Gender Identity Not on file Sexual Orientation Not on file Plan of Treatment Health Maintenance Due Date Last Done Comments HIV SCREENING 10/10/2011 HEPATITIS C SCREENING 10/05/2014 DTAP/TDAP/TD VACCINES (1 - Tdap) 10/10/2015 HEPATITIS B VACCINE (1 of 3 - 19+ 3-dose series) 10/10/2015 HPV VACCINE (1 - 3-dose SCDM series) 10/10/2023 DEPRESSION SCREENING 03/13/2024 COVID-19 VACCINE (1 - 2024-2 6 season) 2024 INFLUENZA VACCINE (#1) 2024 01/09/2017 ZOSTER VACCINE (1 of 2) 2046 HIB VACCINE Aged Out No longer eligi ble based on patient's age to complete this topic MENINGOCOCCAL (Group B) VACC INE SHARED DECISION-MAKING Aged Out No longer eligibl e based on patient's age to complete this topic MENINGOCOCCAL GROUPS A/C/Y/W VACCINE Aged Out No longer eligible b ased on patient's age to complete this topic PNEUMOCOCCAL VACCINE Aged Out No long er eligible based on patient's age to complete this topic Insurance ANTHEM Care Teams Experimental Outboard Motors Mechanic Relationship Specialty Start Date End Date Cesilia Contreras MD PCP - General Family Medicine 01/09/17
--- OUTSIDE RECORDS SUMMARY | 2025-02-27 13:19 | XMS_ITS | Encounter Summary ---
Author Organization [facility] Address 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 No wheezing or difficulty breathing. Delsym not effective. Mom wonders if there's something else she should try for cough. Strep s/s are better.//wd DOCTOR`S RESPONSE: pao 07/25/06 at 02:41 pm MEDICATIONS: Call in to [facility], 1 to 1 1/2 tsp po q 12 hour prn, 150 Dispensed, status: NEW PRESCRIPTION, 07/25/2006. Recheck if increased sxs or not improving few days. Note: this was not in the regular phone note list; I just found it. FINAL ACTION: alberto 07/25/06 at 03:13 pm Spoke with patient 07/25/06 at 03:57 pm. Mom v/u of above//wd Left message on patient`s recorder or with a family member 07/25/2006 at 03:14 pm. TIMMY/jay Called pharmacy at 07/25/06 at 03:13 pm. Spoke with Maria E Electronically Signed by: Nell Keith on Tuesday, July 25, 2006 documented in this encounter Plan of Treatment Upcoming Encounters Date Type Department Care Team (Late st Contact Info) Description 09/02/2025 9:30 AM CDT Office Visit [address] [address] Janeen Landon MD [address] [place] [phone] documented as of this encounter Visit Diagnoses Not on filedocumented in this encounter Care Teams Silviculturist Relationship Specialty Start Date End Date Janeen Landon MD [address] [place] [phone] PCP - General Family Practice 12/05/23 documented as of this encounter
--- OUTSIDE RECORDS SUMMARY | 2025-02-27 13:19 | XMS_ITS | Encounter Summary ---
Author Organization [facility] Address [address] [place] [address] Care Team Providers Care Head Insulation Board Saw Operator Name Role Phone Janeen Landon MD Primary Care [facility] ider Encounter Details Date Type Department Care Team (Late Contact Info) Description 06/30/2003 Outpatient Historical [facility] Pediatric[facility] [place] [address] [place] [phone] Kirit Escobar MD NO ADDRESS ON FILE Social History Tobacco Use Types Packs/Day Years Used Date Smoking Tobacco: Never Assessed Comments Unknown Sex and Gender Information Value Date Recorded Sex Assigned at Not on file Legal Sex Female 4:38 AM CONCRETE 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 [place] Gender Identity Not on file Sexual Orientation Not on file documented as of this encounter Plan of Treatment Upcoming Encounters Date Type Department Care Team (Late Contact Info) Description 09/02/2025 9:30 AM CDT Office Visit [facility] PRIMARY CARE [facility] [address] [place] [address] Janeen Landon MD [address] [place] [phone] documented as of this encounter Visit Diagnoses Not on filedocumented in this encounter Care Teams Head Insulation Board Saw Operator Relationship Specialty Start Date End Date Janeen Landon MD [address] [place], [place] [address] [place] [address] PCP - General Family Practice 12/05/23 documented as of this encounter
--- OUTSIDE RECORDS SUMMARY | 2025-02-27 13:19 | XMS_ITS | Encounter Summary ---
Author Organization [facility] Address [address] [place] [address] Care Team Providers Care Bin Packer Name Role Phone Janeen Landon MD Primary Care [facility] ider Encounter Details Date Type Department Care Team (Late Contact Info) Description 04/05/[address] 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 Gender Identity Not on file Sexual Orientation Not on file documented as of this encounter Plan of Treatment Upcoming Encounters Date Type Department Care Team (Late Contact Info) Description 09/02/2025 9:30 AM CDT Office Visit [facility] PRIMARY CARE [facility] [address] [place] [address] Janeen Landon MD [address] [place] [phone] documented as of this encounter Visit Diagnoses Not on filedocumented in this encounter Care Teams Bin Packer Relationship Specialty Start Date End Date Janeen Landon MD [address] [place], [place] [address] [place] [address] PCP - General Family Practice 12/05/23 documented as of this encounter
--- OUTSIDE RECORDS SUMMARY | 2025-02-27 13:19 | XMS_ITS | Encounter Summary ---
Author Organization [facility] Address 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 Female 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 Gender Identity Not on file Sexual Orientation Not on file documented as of this encounter Plan of Treatment Upcoming Encounters Date Type Department Care Team (Late Contact Info) Description 09/02/2025 9:30 AM CDT Office Visit [facility] PRIMARY CARE [facility] [address] [place] [address] Janeen Landon MD [address] [place] [address] documented as of this encounter Visit Diagnoses Not on filedocumented in this encounter Care Teams Jewelry Manager Relationship Specialty Start Date End Date Janeen Lnadon MD [address] [place] [phone] PCP - General Family Practice 12/05/23 documented as of this encounter
--- OUTSIDE RECORDS SUMMARY | 2025-02-27 13:19 | XMS_ITS | Clinical Summary ---
Author Organization [employer] [address] [place] Address [address] [place] [phone] Care Team Providers Care Maintenance Mechanic Helper Name Role Phone Barbi Janeen Mo MD Primary Care Prov ider Allergies No known active allergies Medications cetirizine HCl (ZYRTEC ORAL) Take by mouth. Active multivitamin (DAILY-DEEDEE) tablet Take 1 Tablet by mouth daily. Active norethindrn a-e estradiol-iron (Aurovela Fe 1-20, 28,) 1 mg-20 mcg (21)/75 mg (7) tabletIndication s:Dysmenorrhea Take 1 Tablet by mouth daily. 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 11/01/2023 09/02/2024 Anxiety and depression 05/24/201609/02 Acute maxillary sinusitis 06/10/2015 Right otitis media with effusion 06/10/2015 05/24/2016 Secondary amenorrhea 04/22/2015 025 Pharyngitis, acute 03/31/2015 6 Allergic rhinitis 01/17/2012 05/24/2016 Nevus 01/17/2012 09/02/2024 Streptococcal sore throat 07/20/2006 Acute suppurative otitis med ia without spontaneous rupture of eardrum 02/07/2005 8 Cough 02/07/2005 09/20/2007 Encounters Date Type Department Care Team Description 12/10/2024 External Device Data ST[facility] ABSTRACTION Provider, Abstract from Last 3 Months Immunizations Immunization Administration Dates Next Due (ADACEL/BOOSTRIX)(10 YR UP) TDAP VACCINE, 0.5ML, IM 05/21/2010 (GARDASIL 9)(9-45 YRS) HUMAN PAPILLOMAVIRUS VACCINE, TYPES 6, 11, 16, 18, 31, 33, 45, 52, 58, NONAVALENT (9VHPV), 2 OR 3 DOSE, IM 11/10/2021 (HAVRIX/VAQTA)(12 MO-18 YRS) HEPATITIS A VACCINE 0.5 ML PED/ADOL 2 DOSE, IM 04/22/2015,01/17/2012 (INFANRIX)(6 WKS-6 YRS) DIPT HERIA, TETANUS TOXOIDS, AND ACCELLULAR PERTUSSIS VACCINE (DTAP), 0.5 ML IM 10/10/2000,04/23/1998,04/22/1997,02/14,1996 (IPOL)(6 WKS AND UP) POLIOVI RITCHIE VACCINE, INACTIVATED (IPV), 3 DOSE, SUBCUT OR IM 10/10/2000,10/16/1997,02/14/1997,12/19 (M-M-R II/PRIORIX)(12 MO UP) MEASLES, MUMPS AND RUBELLA VIRUS VACCINE, 0.5 ML IM/SUBCUT 10/10/2000,10/16/1997 (VARIVAX)(12 MOS UP)VARICELL A VIRUS VACCINE (PF) 0.5 ML, SUB CUT 05/21/2010,10/16/1997 HIB, Unspecified Formulation 10/16/1997, 04/22/1997,02/14/1997,12/19 Hepatitis B Vaccine 04/22/1997,1996,1996 INFLUENZA VACCINE QUADRIVALE NT 6 MOS UP PF IM 01/03/2023,01/15/2021,01/09/2017 Influenza Seasonal Unspecifi ed Formulation IM 01/15/2021,01/01/2019,01/06/2018,01/09,01/16/2015 Influenza Seasonal Unspecifi ed Formulation PF IM 01/16/2015 Influenza Vaccine Nasal 01/17/2012 Meningococcal A Conjugate Vaccine IM 04/22/2015, 05/21/2010 Skin Test TB 06/22/2020 Family History Medical History Relation Name Comments Heart Disease Maternal Grandfather Zak Hypertension Maternal Grandfather Zak Heart Disease Maternal Grandmother Nicol Hypertension Maternal Grandmother Nicol Breast Cancer Paternal Aunt Depression Paternal Grandfather Pierre Heart Disease Paternal Grandfather Pierre Hypertension Paternal Grandfather Pierre Breast Cancer Paternal Grandmother Maida Depression Paternal Grandmother Maida Heart Disease Paternal Grandmother Maida Hypertension Paternal Grandmother Maida Anemia Sister Evonne Relation Name Status Comments Brother Alive Father Alive Maternal Grandfather Zak Maternal Grandmother Nicol Mother Alive Paternal Aunt Alive Paternal Grandfather Pierre Paternal Grandmother Maida Sister Evonne Alive Social History Tobacco Use Types Packs/Day Years Used Date Smoking Tobacco: Never Smokeless Tobacco: Never Tobacco Cessation:Counseling Given: Not Answered Comments:Uses nicotine pouches-Zyn Alcohol Use Standard Drinks/Week Comments Yes 2 (1 standard drink = 0.6 oz pur e alcohol) Socially drink- not often [facility] Utilities Answer Date Recorded In the past 12 months has e electric, gas, oil, or water company threatened to shut off services in your home? No 12/22/2023 Financial Resource Strain Answer Date R ecorded How hard is it for you to pa y for the very basics like food, housing, medical care, and heating? Not hard at all 12/22/2023 Food Insecurity Answer Date Recorded In the past 12 months, have you worried that your food would run out before you had money to buy more? Never true 12/22/2023 In the past 12 months, did y ou run out of food and didn't have money to buy more? Never true 12/22/2023 Transportation Needs Answer Date Record ed In the past 12 months, has l ack of transportation kept you from medical appointments or from getting medications? No 12/11 In the past 12 months, has l ack of transportation kept you from meetings, work, or from getting things needed for daily living? No 12/22/2023 Feeling Safe Answer Date Recorded Are you in a relationship wi th someone who hurts you emotionally and/or physically? No 05/16/2024 Comments No Sex and Gender Information Value Date Recorded Sex Assigned at Not on file Legal Sex Female 4:38 AM SURVEILLANCE INSPECTOR Gender Identity Not on file Sexual Orientation Not on file Last Filed Vital Signs Vital Sign Reading Time Taken Comments Blood Pressure 110/68 09/23/2024 10:55 AM CDT Pulse 73 09/11/2024 8:11 AM CDT Temperature 36.6 C (97.8 F) 05/30/2024 6:01 PM CDT Respiratory Rate 16 09/11/2024 8:11 AM CDT Oxygen Saturation 99% 09/11/2024 8:11 AM CDT Inhaled Oxygen Concentration - - Weight 64 kg (141 lb) 09/23/2024 10:55 AM CDT Height 167.6 cm (5' 6) 09/23/2024 10:55 AM CDT Body Mass Index 22.76 09/23/2024 10:55 AM CDT Plan of Treatment Upcoming Encounters Date Type Department Care Team (Late st Contact Info) Description 09/02/2025 9:30 AM CDT Office Visit [facility] PRIMARY CARE [address] [address] Janeen Landon MD [address] [place] [phone] Health Maintenance Due Date Last Done Comments HPV/Cotest (21-29) 2017 DTAP/TDAP/TD VACCINES (7 - T d or Tdap) 05/21/2020 05/21/2010, 10/10/2000, 04/23/1998, Additional history exists HPV VACCINES (2 - 3-dose series) 12/08/2021 11/11/19 22 INFLUENZA VACCINE (#1) 2024 , 01/15/2021, 01/15/2021, Additional history exists COVID-19 Vaccine (2024-2 6 season) 2024 01/15/2021, 04/23/2020, 04/02/2020 CERVICAL CANCER SCREENING 09/12/2027 PAP SMEAR 09/12/2027 09/11/2024, 04/2024, 11/10/2021 HEPATITIS B VACCINES Completed 04/22/1997, 1996, 1996 Procedures Procedure Name Priority Date/Time Associated Diagnosis Comments CERV/VAG CYTO AGE BASED SCREEN PAP W CT/NG, TRICH Routine 09/11/2024 8:39 AM CDT Well woman exam with routine gynecological exam from Last 3 Months or Most Recently Relevant to Health Maintenance Results * CERV/VAG CYTO AGE BASED SCREEN PAP W CT/NG, TRICH (09/11/2024 8:39 AM CDT) COMMENT (PAP): [facility] Comment: This order for age-based cervical cancer and STI screening follows ACOG guidelines(PB 168, 140, XDW617). See individual assays for performing site location. CLINICAL INFORMATION [facility] Comment:None given LAST MENSTRUAL PERIOD [facility] Comment:08/26/2024 PREV PAP: [facility] Comment:NONE GIVEN PREV BX: [facility] Comment:NONE GIVEN SOURCE [facility] Comment:Endocervix ADEQUACY: [facility] Comment: Satisfactory for evaluation. Endocervical/transformation zone component present. PAP INTERP [facility] Comment: Cytology Results: Negative for intraepithelial lesion or malignancy. COMMENT (PAP TEST) [facility] Comment: This Pap test has been evaluated with computer assisted technology. COMMUNICATIONS EDITOR: Shayne ospina [facility] Comment: LMT, CT(ASCP) CT screening location: [place] [address] [place] [address] EXPLANATORY NOTE [facility] Comment: EXPLANATORY NOTE: The Pap is a screening test for cervical cancer. It is not a diagnostic test and is subject to false negative and false positive results. It is most reliable when a satisfactory sample, regularly obtained, is submitted with relevant clinical findings and history, and when the Pap result is evaluated along with historic and current clinical information. CHLAMYDIA TRACHOMATIS RNA, TMA, UROGENITAL NOT DETECTED NOT DETECTED [facility] NEISSERIA GONORRHOEAE RNA, TMA, UROGENITAL NOT DETECTED NOT DETECTED [facility] COMMENT INFECTIOUS DISEASE [facility] Comment: The analytical performance characteristics of this assay, when used to test SurePath(TM) specimens have been determined by [facility]. The modifications have not been cleared or approved by the FDA. This assay has been validated pursuant to the CLIA regulations and is used for clinical purposes. For additional information, please refer to https://Edsby.PacketFront/faq/EJP454 (This link is being provided for information/ educational purposes only.) TRICHOMONAS VAGINALIS,QUALITAT JOIE,PAP VIAL NOT DETECTED NOT DETECTED [facility] Comment: The analytical performance characteristics of this assay have been determined by [facility]. The modifications have not been cleared or approved by the FDA. This assay has been validated pursuant to the CLIA regulations and is used for clinical purposes. For additional information, please refer to http://Edsby.PacketFront/ faq/Trichomonastma (This link is being provided for information/ educational purposes only.) Test Performed at: [place] [address] [place] [address] Lucas MORLEY Genital SWAB OF ENDOCERVIX / Unknown 09/11/2024 8:39 AM CDT 09/12/2024 2:55 PM CDT Nohemi Rogel PA-C PATHOLOGY/CYTOLOGY ORDERABLES Final Result Performing Organization Address City/State/[facility] Co de Phone Number [facility] [phone] [facility] [address] [place] [address] from Last 3 Months or Most Recently Relevant to Health Maintenance Insurance BS BLUE ACCESS/TRUE BLUE PPO BCBS OUT OF STATE RX [employer] Express Care Teams Maintenance Mechanic Helper Relationship Specialty Start Date End Date Janeen Landon MD [address] [place] [phone] PCP - General Family Practice 12/05/23
--- OUTSIDE RECORDS SUMMARY | 2025-02-27 13:19 | XMS_ITS | Encounter Summary ---
Author Organization [facility] Address [address] [place] [address] Care Team Providers Care Supervisor Crack Off Name Role Phone Janeen Landon MD Primary Care [facility] ider Encounter Details Date Type Department Care Team (Late Contact Info) Description 02/07/2005 Outpatient Historical [facility] Pediatrics [place] [address] [place] [phone] Daniel Leong MD NO ADDRESS ON FILE Social History Tobacco Use Types Packs/Day Years Used Date Smoking Tobacco: Never Assessed Comments Unknown Sex and Gender Information Value Date Recorded Sex Assigned at Not on file Legal Sex Female 4:38 AM SUBMARINE ADVISORY TEAM WATCH OFFICER Gender Identity Not on file Sexual Orientation Not on file documented as of this encounter Last Filed Vital Signs Vital Sign Reading Time Taken Comments Blood Pressure - - Pulse - - Temperature 36.2 C (97.2 F) 02/07/2005 7:50 AM SUBMARINE ADVISORY TEAM WATCH OFFICER Respiratory Rate - - Oxygen Saturation - - Inhaled Oxygen Concentration - - Weight 24.6 kg (54 lb 4.8 oz) 02/07/2005 7:50 AM SUBMARINE ADVISORY TEAM WATCH OFFICER Height - - Body Mass Index - - documented in this encounter Plan of Treatment Upcoming Encounters Date Type Department Care Team (Late Contact Info) Description 09/02/2025 9:30 AM CDT Office Visit [facility] PRIMARY CARE [address] [address] Janeen Landon MD [address] [place] [phone] documented as of this encounter Visit Diagnoses Not on filedocumented in this encounter Care Teams Supervisor Crack Off Relationship Specialty Start Date End Date Janeen Landon MD [address] [place] [phone] PCP - General Family Practice 12/05/23 documented as of this encounter
--- OUTSIDE RECORDS SUMMARY | 2025-02-27 13:19 | XMS_ITS | Encounter Summary ---
Author Organization [facility] Address [address] [place] [address] Care Team Providers Care Chemical Research Worker Name Role Phone Janeen Landon MD Primary Care [facility] ider Encounter Details Date Type Department Care Team (Late Contact Info) Description 10/16/1997 Outpatient Historical [facility] Pediatrics [place] [address] [facility] [place] [phone] Kirit Escobar MD NO ADDRESS ON FILE Social History Tobacco Use Types Packs/Day Years Used Date Smoking Tobacco: Never Assessed Comments Unknown Sex and Gender Information Value Date Recorded Sex Assigned at Not on file Legal Sex Female 4:38 AM 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 Gender Identity Not on file Sexual Orientation Not on file documented as of this encounter Plan of Treatment Upcoming Encounters Date Type Department Care Team (Late Contact Info) Description 09/02/2025 9:30 AM CDT Office Visit [facility] PRIMARY CARE [facility] [address] [place] [address] Janeen Landon MD [address] [place] [phone] documented as of this encounter Visit Diagnoses Not on filedocumented in this encounter Care Teams Chemical Research Worker Relationship Specialty Start Date End Date Janeen Landon MD [address] [place], [place] [address] [place] [address] PCP - General Family Practice 12/05/23 documented as of this encounter
== END 2025-02-27 13:46 | disposition home or self-care (01) ==
PROVIDERS: Emergency Provider Physician Assistant
DX: S52.571A Other intraarticular fracture of lower end of right radius, initial encounter for closed fracture (principal); S52.611A Displaced fracture of right ulna styloid process, initial encounter for closed fracture; F41.9 Anxiety disorder, unspecified; V49.40XA Driver injured in collision with unspecified motor vehicles in traffic accident, initial encounter
CPT/HCPCS: 25605; 29125; 36415; 70450; 71260; 72125; 73110; 74177; 80053; 81025; 85025; 85610; 85730; 90471; 96374; 96375; 99284; 99285; A4565; J2003; J2270; J2405; J3010; Q9967

== ENCOUNTER 2025-02-28 13:57 | Outpatient (CLI) | payer OTHER, BC, SELFPAY ==
--- OUTSIDE RECORDS SUMMARY | 2025-02-28 14:07 | XMS_ITS | Encounter Summary ---
Author Organization [facility] Address [address] [place] [address] Care Team Providers Care Major Gifts Officer Name Role Phone Janeen Landon MD Primary Care [facility] ider Encounter Details Date Type Department Care Team (Late Contact Info) Description 02/07/2005 Outpatient Historical [facility] Pediatrics [place] [address] [place] [phone] Daniel Leong MD NO ADDRESS ON FILE Social History Tobacco Use Types Packs/Day Years Used Date Smoking Tobacco: Never Assessed Comments Unknown Sex and Gender Information Value Date Recorded Sex Assigned at Not on file Legal Sex Female 4:38 AM EVENT SALES MANAGER Gender Identity Not on file Sexual Orientation Not on file documented as of this encounter Last Filed Vital Signs Vital Sign Reading Time Taken Comments Blood Pressure - - Pulse - - Temperature 36.2 C (97.2 F) 02/07/2005 7:50 AM EVENT SALES MANAGER Respiratory Rate - - Oxygen Saturation - - Inhaled Oxygen Concentration - - Weight 24.6 kg (54 lb 4.8 oz) 02/07/2005 7:50 AM EVENT SALES MANAGER Height - - Body Mass Index - - documented in this encounter Plan of Treatment Upcoming Encounters Date Type Department Care Team (Late Contact Info) Description 09/02/2025 9:30 AM CDT Office Visit [facility] PRIMARY CARE [address] [address] Janeen Landon MD [address] [place] [phone] documented as of this encounter Visit Diagnoses Not on filedocumented in this encounter Care Teams Major Gifts Officer Relationship Specialty Start Date End Date Janeen Landon MD [address] [place] [phone] PCP - General Family Practice 12/05/23 documented as of this encounter
--- OUTSIDE RECORDS SUMMARY | 2025-02-28 14:07 | XMS_ITS | Encounter Summary ---
Author Organization [facility] Address [address] [place] [address] Care Team Providers Care Syrup Machine Laborer Name Role Phone Janeen Landon MD Primary Care [facility] ider Encounter Details Date Type Department Care Team (Late Contact Info) Description 03/28/1998 Outpatient Historical [facility] Pediatrics [place] [address] [facility] [place] [phone] Kirit Escobar MD NO ADDRESS ON FILE Social History Tobacco Use Types Packs/Day Years Used Date Smoking Tobacco: Never Assessed Comments Unknown Sex and Gender Information Value Date Recorded Sex Assigned at Not on file Legal Sex Female 4:38 AM SPACE STUDIES FACULTY MEMBER Gender Identity Not on file Sexual Orientation Not on file documented as of this encounter Plan of Treatment Upcoming Encounters Date Type Department Care Team (Late Contact Info) Description 09/02/2025 9:30 AM CDT Office Visit [facility] PRIMARY CARE [facility] [address] [place] [address] Janeen Landon MD [address] [place] [phone] documented as of this encounter Visit Diagnoses Not on filedocumented in this encounter Care Teams Syrup Machine Laborer Relationship Specialty Start Date End Date Janeen Landon MD [address] [place], [place] [address] [place] [address] PCP - General Family Practice 12/05/23 documented as of this encounter
--- OUTSIDE RECORDS SUMMARY | 2025-02-28 14:07 | XMS_ITS | Encounter Summary ---
Author Organization [facility] Address 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 Gender Identity Not on file Sexual Orientation Not on file documented as of this encounter Plan of Treatment Upcoming Encounters Date Type Department Care Team (Late Contact Info) Description 09/02/2025 9:30 AM CDT Office Visit [facility] PRIMARY CARE [facility] [address] [place] [address] Janeen Landon MD [address] [place] [phone] documented as of this encounter Visit Diagnoses Not on filedocumented in this encounter Care Teams Ergonomics Consultant Relationship Specialty Start Date End Date Janeen Landon MD [address] [place], [place] [address] [place] [address] PCP - General Family Practice 12/05/23 documented as of this encounter
--- OUTSIDE RECORDS SUMMARY | 2025-02-28 14:07 | XMS_ITS | Encounter Summary ---
Author Organization [facility] Address [address] [place] [address] Care Team Providers Care Agency Director Name Role Phone Janeen Landon MD Primary Care Prov ider Encounter Details Date Type Department Care Team (Late st Contact Info) Description 07/20/[address] 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 ALLERGIES: CURRENT ALLERGY [...] Description 09/02/2025 9:30 AM CDT Office Visit [facility] PRIMARY CARE [address] [phone] Janeen Landon MD [address] [place] [phone] documented as of this encounter Visit Diagnoses Not on filedocumented in this encounter Care Teams Agency Director Relationship Specialty Start Date End Date Janeen Landon MD [address] [place] [phone] PCP - General Family Practice 12/05/23 documented as of this encounter
--- OUTSIDE RECORDS SUMMARY | 2025-02-28 14:07 | XMS_ITS | Encounter Summary ---
Author Organization [facility] Address 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 Gender Identity Not on file Sexual Orientation Not on file documented as of this encounter Plan of Treatment Upcoming Encounters Date Type Department Care Team (Late Contact Info) Description 09/02/2025 9:30 AM CDT Office Visit [facility] PRIMARY CARE [facility] [address] [place] [address] Janeen Landon MD [address] [place] [address] documented as of this encounter Visit Diagnoses Not on filedocumented in this encounter Care Teams Projector Operator Relationship Specialty Start Date End Date Janeen Landon MD [address] [place] [phone] PCP - General Family Practice 12/05/23 documented as of this encounter
--- OUTSIDE RECORDS SUMMARY | 2025-02-28 14:07 | XMS_ITS | Encounter Summary ---
Author Organization [facility] Address [address] [place] [address] Care Team Providers Care Electric Organ Assembler And Checker Name Role Phone Janeen Landon MD Primary Care 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 [address] [place] [address] Janeen Landon MD [address] [place] [phone] documented as of this encounter Visit Diagnoses Not on filedocumented in this encounter Care Teams Electric Organ Assembler And Checker Relationship Specialty Start Date End Date Janeen Landon MD [address] [place], [place] [address] [place] [address] PCP - General Family Practice 12/05/23 documented as of this encounter
--- OUTSIDE RECORDS SUMMARY | 2025-02-28 14:07 | XMS_ITS | Encounter Summary ---
Author Organization [facility] Address [address] [place] [address] Care Team Providers Care Clamshell Operator Name Role Phone Janeen Landon MD Primary Care [facility] ider Encounter Details Date Type Department Care Team (Late Contact Info) Description 06/30/2003 Outpatient Historical [facility] Pediatrics [place] [address] [facility] [place] [phone] Kirit Escobar MD NO ADDRESS ON FILE Social History Tobacco Use Types Packs/Day Years Used Date Smoking Tobacco: Never Assessed Comments Unknown Sex and Gender Information Value Date Recorded Sex Assigned at Not on file 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 Gender Identity Not on file Sexual Orientation Not on file documented as of this encounter Plan of Treatment Upcoming Encounters Date Type Department Care Team (Late Contact Info) Description 09/02/2025 9:30 AM CDT Office Visit [facility] PRIMARY CARE [facility] [address] [place] [address] Janeen Landon MD [address] [place] [phone] documented as of this encounter Visit Diagnoses Not on filedocumented in this encounter Care Teams Clamshell Operator Relationship Specialty Start Date End Date Janeen Landon MD [address] [place], [place] [address] [place] [address] PCP - General Family Practice 12/05/23 documented as of this encounter
--- OUTSIDE RECORDS SUMMARY | 2025-02-28 14:07 | XMS_ITS | Encounter Summary ---
Author Organization [facility] Address [address] [place] [address] Care Team Providers Care Channel Man Name Role Phone Janeen Landon MD Primary Care 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
--- OUTSIDE RECORDS SUMMARY | 2025-02-28 14:07 | XMS_ITS | Encounter Summary ---
Author Organization [facility] Address [address] [place] [address] Care Team Providers Care Miner Placer Name Role Phone Janeen Landon MD Primary Care 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 Gender Identity Not on file Sexual Orientation Not on file documented as of this encounter Plan of Treatment Upcoming Encounters Date Type Department Care Team (Late Contact Info) Description 09/02/2025 9:30 AM CDT Office Visit [facility] PRIMARY CARE [facility] [address] [place] [address] Janeen Landon MD [address] [place] [phone] documented as of this encounter Visit Diagnoses Not on filedocumented in this encounter Care Teams Miner Placer Relationship Specialty Start Date End Date Janeen Landon MD [address] [place], [place] [address] [place] [address] PCP - General Family Practice 12/05/23 documented as of this encounter
--- OUTSIDE RECORDS SUMMARY | 2025-02-28 14:07 | XMS_ITS | Encounter Summary ---
Author Organization [facility] Address [address] [place] [address] Care Team Providers Care Carbon Sequestration Plant Engineer Name Role Phone Janeen Landon MD Primary Care [facility] ider Encounter Details Date Type Department Care Team (Late Contact Info) Description 04/28/2000 Outpatient Historical [facility] Pediatrics [place] [address] [facility] [place] [phone] Kirit Escobar MD NO ADDRESS ON FILE Social History Tobacco Use Types Packs/Day Years Used Date Smoking Tobacco: Never Assessed Comments Unknown Sex and Gender Information Value Date Recorded Sex Assigned at Not on file 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 [address] [place] [address] Janeen Landon MD [address] [place] [phone] documented as of this encounter Visit Diagnoses Not on filedocumented in this encounter Care Teams Carbon Sequestration Plant Engineer Relationship Specialty Start Date End Date Janeen Landon MD [address] [place], [place] [address] [place] [address] PCP - General Family Practice 12/05/23 documented as of this encounter
--- OUTSIDE RECORDS SUMMARY | 2025-02-28 14:07 | XMS_ITS | Encounter Summary ---
Author Organization [facility] Address [address] [place] [address] Care Team Providers Care Health Safety Instructor Name Role Phone Janeen Landon MD Primary Care [facility] ider Encounter Details Date Type Department Care Team (Late Contact Info) Description 11/09/1999 Outpatient Historical [facility] Pediatrics [place] [address] [facility] [place] [phone] Kirit Escobar MD NO ADDRESS ON FILE Social History Tobacco Use Types Packs/Day Years Used Date Smoking Tobacco: Never Assessed Comments Unknown Sex and Gender Information Value Date Recorded Sex Assigned at Not on file 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 Gender Identity Not on file Sexual Orientation Not on file documented as of this encounter Plan of Treatment Upcoming Encounters Date Type Department Care Team (Late Contact Info) Description 09/02/2025 9:30 AM CDT [facility] PRIMARY CARE [facility] [address] [place] [address] Janeen Landon MD [address] [place] [phone] documented as of this encounter Visit Diagnoses Not on filedocumented in this encounter Care Teams Health Safety Instructor Relationship Specialty Start Date End Date Janeen Landon MD [address] [place], [place] [address] [place] [address] PCP - General Family Practice 12/05/23 documented as of this encounter
--- OUTSIDE RECORDS SUMMARY | 2025-02-28 14:07 | XMS_ITS | Encounter Summary ---
Author Organization [facility] Address [address] [place] [address] Care Team Providers Care Assistant Professor Of Nursing Name Role Phone Janeen Landon MD Primary Care [facility] ider Encounter Details Date Type Department Care Team (Late Contact Info) Description 05/13/2003 Outpatient Historical [facility] Pediatrics [place] [address] [facility] [place] [address] Kirit Escobar MD NO ADDRESS ON FILE Social History Tobacco Use Types Packs/Day Years Used Date Smoking Tobacco: Never Assessed Comments Unknown Sex and Gender Information Value Date Recorded Sex Assigned at Not on file 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 Gender Identity Not on file Sexual Orientation Not on file documented as of this encounter Plan of Treatment Upcoming Encounters Date Type Department Care Team (Late Contact Info) Description 09/02/2025 9:30 AM CDT Office Visit [facility] PRIMARY CARE [facility] [address] [place] [address] Janeen Landon MD [address] [place] [phone] documented as of this encounter Visit Diagnoses Not on filedocumented in this encounter Care Teams Assistant Professor Of Nursing Relationship Specialty Start Date End Date Janeen Landon MD [address] [place], [place] [address] [place] [address] PCP - General Family Practice 12/05/23 documented as of this encounter
--- OUTSIDE RECORDS SUMMARY | 2025-02-28 14:07 | XMS_ITS | Encounter Summary ---
Author Organization [facility] Address [address] [place] [address] Care Team Providers Care Primary Counselor Name Role Phone Janeen Landon MD Primary Care Prov ider Encounter Details Date Type Department Care Team (Late st Contact Info) Description 07/25/2006 Orders Only [facility] Pediatrics [place] [address] [facility] [place] [address] Kirit Escobar MD NO ADDRESS ON FILE Social History Tobacco Use Types Packs/Day Years Used Date Smoking Tobacco: Never Assessed Comments Unknown Sex and Gender Information Value Date Recorded Sex Assigned at Not on file 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 WHO TOOK THE CALL: Nell Keith M [...] Description 09/02/2025 9:30 AM CDT Office Visit [address] [address] Janeen Landon MD [address] [place] [phone] documented as of this encounter Visit Diagnoses Not on filedocumented in this encounter Care Teams Primary Counselor Relationship Specialty Start Date End Date Janeen Landon MD [address] [place] [phone] PCP - General Family Practice 12/05/23 documented as of this encounter
--- OUTSIDE RECORDS SUMMARY | 2025-02-28 14:07 | XMS_ITS | Encounter Summary ---
Author Organization [facility] Address [address] [place] [address] Care Team Providers Care Ward Attendant Name Role Phone Janeen Landon MD Primary Care [facility] ider Encounter Details Date Type Department Care Team (Late Contact Info) Description 01/10/2004 Outpatient Historical [facility] [place] [address] [place] [phone] Kirit Escobar MD NO ADDRESS ON FILE Social History Tobacco Use Types Packs/Day Years Used Date Smoking Tobacco: Never Assessed Comments Unknown Sex and Gender Information Value Date Recorded Sex Assigned at Not on file Legal Sex Female 4:38 AM MACHINE SET UP Gender Identity Not on file Sexual Orientation Not on file documented as of this encounter Plan of Treatment Upcoming Encounters Date Type Department Care Team (Late Contact Info) Description 09/02/2025 9:30 AM CDT Office Visit [facility] PRIMARY CARE [facility] [address] [place] [address] Janeen Landon MD [address] [place] [phone] documented as of this encounter Visit Diagnoses Not on filedocumented in this encounter Care Teams Ward Attendant Relationship Specialty Start Date End Date Janeen Landon MD [address] [place], [place] [address] [place] [address] PCP - General Family Practice 12/05/23 documented as of this encounter
--- OUTSIDE RECORDS SUMMARY | 2025-02-28 14:07 | XMS_ITS | Clinical Summary ---
Author Organization [facility] [employer] Address [address] [place] [address] Care Team Providers Care Supervisor Pipelines Name Role Phone Cesilia Contreras MD Primary Care Provider [phone] Source Comments [facility] [employer],non-owned Affiliates and Associated Physician Practices is amultiple site organization consisting of ambulatory clinics and hospital sitesin [place], [place], [place] and [place]. This disclosure is being madepursuant to the Care Everywhere program and may not contain all information available regarding this patient. Last updated 17.[facility] [employer] Allergies No known active allergies Immunizations Immunization Administration Dates Next Due INFLUENZA VACCINE, QUADR. (F LUZONE; FLULAVAL; FLUARIX; AFLURIA QUADRIVALENT; 6MO+), 0.5 ML (IIV4) 01/09/2017 Social History Tobacco Use Types Packs/Day Years Used Date Smoking Tobacco: Never Assessed Comments Unknown Sex and Gender Information Value Date Recorded Sex Assigned at Not on file Legal Sex Female 5:19 AM MACHINE PRECISION ETCHER Gender Identity Not on file Sexual Orientation [...] complete this topic Insurance ANTHEM Care Teams Supervisor Pipelines Relationship Specialty Start Date End Date Cesilia Contreras MD PCP - General Family Medicine 01/09/17
--- OUTSIDE RECORDS SUMMARY | 2025-02-28 14:07 | XMS_ITS | Encounter Summary ---
Author Organization [facility] Address [address] [place] [address] Care Team Providers Care Student Activities Director Name Role Phone Janeen Landon MD Primary Care [facility] ider Encounter Details Date Type Department Care Team (Late Contact Info) Description 02/28/1998 Outpatient Historical 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 Gender Identity Not on file Sexual Orientation Not on file documented as of this encounter Plan of Treatment Upcoming Encounters Date Type Department Care Team (Late st Contact Info) Description 09/02/2025 9:30 AM CDT Office Visit [facility] PRIMARY CARE [address] [address] Janeen Landon MD [address] [place] [phone] documented as of this encounter Visit Diagnoses Not on filedocumented in this encounter Care Teams Student Activities Director Relationship Specialty Start Date End Date Janeen Landon MD [address] [place] [phone] PCP - General Family Practice 12/05/23 documented as of this encounter
--- OUTSIDE RECORDS SUMMARY | 2025-02-28 14:07 | XMS_ITS | Encounter Summary ---
Author Organization [facility] Address 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 [address] [place] [address] Janeen Landon MD [address] [place] [phone] documented as of this encounter Visit Diagnoses Not on filedocumented in this encounter Care Teams Fuse Coiler Relationship Specialty Start Date End Date Janeen Landon MD [address] [place], [place] [address] [place] [address] PCP - General Family Practice 12/05/23 documented as of this encounter
--- OUTSIDE RECORDS SUMMARY | 2025-02-28 14:07 | XMS_ITS | Encounter Summary ---
Author Organization [facility] Address [address] [place] [address] Care Team Providers Care Clean Out Driller Name Role Phone Janeen Landon MD Primary Care [facility] ider Encounter Details Date Type Department Care Team (Late Contact Info) Description 02/25/2000 Outpatient Historical [facility] Pediatrics [place] [address] 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 PRIMARY CARE [facility] [address] [place] [address] Janeen Landon MD [address] [place] [phone] documented as of this encounter Visit Diagnoses Not on filedocumented in this encounter Care Teams Clean Out Driller Relationship Specialty Start Date End Date Janeen Landon MD [address] [place], [place] [address] [place] [address] PCP - General Family Practice 12/05/23 documented as of this encounter
--- OUTSIDE RECORDS SUMMARY | 2025-02-28 14:07 | XMS_ITS | Encounter Summary ---
Author Organization [facility] Address 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 Gender Identity Not on file Sexual Orientation Not on file documented as of this encounter Plan of Treatment Upcoming Encounters Date Type Department Care Team (Late Contact Info) Description 09/02/2025 9:30 AM CDT Office Visit [facility] [address] [address] Janeen Landon MD [address] [place] [phone] documented as of this encounter Visit Diagnoses Diagnosis Injury, other and unspecified, shoulder and upper arm- Primary documented in this encounter Care Teams Overhead Foreman Relationship Specialty Start Date End Date Janeen Landon MD [address] [place] [phone] PCP - General Family Practice 12/05/23 documented as of this encounter
--- OUTSIDE RECORDS SUMMARY | 2025-02-28 14:07 | XMS_ITS | Encounter Summary ---
Author Organization [facility] Address [address] [place] [address] Care Team Providers Care Small Arms Repairer Name Role Phone Janeen Landon MD Primary Care [facility] ider Encounter Details Date Type Department Care Team (Late Contact Info) Description 04/23/1998 Outpatient Historical [facility] Pediatrics [place] [address] [facility] [place] [address] Kirit Escobar MD NO ADDRESS ON FILE Social History Tobacco Use Types Packs/Day Years Used Date Smoking Tobacco: Never Assessed Comments Unknown Sex and Gender Information Value Date Recorded Sex Assigned at Not on file 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 Gender Identity Not on file Sexual Orientation Not on file documented as of this encounter Plan of Treatment Upcoming Encounters Date Type Department Care Team (Late Contact Info) Description 09/02/2025 9:30 AM CDT Office Visit [facility] [address] [place] [address] Janeen Landon MD [address] [place] [phone] documented as of this encounter Visit Diagnoses Not on filedocumented in this encounter Care Teams Small Arms Repairer Relationship Specialty Start Date End Date Janeen Landon MD [address] [place], [place] [address] [place] [address] PCP - General Family Practice 12/05/23 documented as of this encounter
--- OUTSIDE RECORDS SUMMARY | 2025-02-28 14:07 | XMS_ITS | Encounter Summary ---
Author Organization [facility] Address [address] [place] [address] Care Team Providers Care Retail Service Specialist Name Role Phone Janeen Landon MD Primary Care [facility] ider Encounter Details Date Type Department Care Team (Late Contact Info) Description 04/05/2004 Outpatient Historical [facility] Pediatrics [place] [address] [facility] [place] [address] Kirit Escobar MD NO ADDRESS ON FILE Social History Tobacco Use Types Packs/Day Years Used Date Smoking Tobacco: Never Assessed Comments Unknown Sex and Gender Information Value Date Recorded Sex Assigned at Not on file 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 Gender Identity Not on file Sexual Orientation Not on file documented as of this encounter Plan of Treatment Upcoming Encounters Date Type Department Care Team (Late Contact Info) Description 09/02/2025 9:30 AM CDT Office Visit [facility] PRIMARY CARE [facility] [address] [place] [address] Janeen Landon MD [address] [place] [phone] documented as of this encounter Visit Diagnoses Not on filedocumented in this encounter Care Teams Retail Service Specialist Relationship Specialty Start Date End Date Janeen Landon MD [address] [place], [place] [address] [place] [address] PCP - General Family Practice 12/05/23 documented as of this encounter
--- OUTSIDE RECORDS SUMMARY | 2025-02-28 14:07 | XMS_ITS | Encounter Summary ---
Author Organization [facility] Address [address] [place] [address] Care Team Providers Care Hammerer Name Role Phone Janeen Landon MD Primary Care [facility] ider Encounter Details Date Type Department Care Team (Late Contact Info) Description 05/22/1998 Outpatient Historical [facility] Pediatrics [place] [address] [facility] [place] [address] Kirit Escobar MD NO ADDRESS ON FILE Social History Tobacco Use Types Packs/Day Years Used Date Smoking Tobacco: Never Assessed Comments Unknown Sex and Gender Information Value Date Recorded Sex Assigned at Not on file 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 Gender Identity Not on file Sexual Orientation Not on file documented as of this encounter Plan of Treatment Upcoming Encounters Date Type Department Care Team (Late Contact Info) Description 09/02/2025 9:30 AM CDT Office Visit [facility] PRIMARY CARE [facility] [address] [place] [address] Janeen Landon MD [address] [place] [phone] documented as of this encounter Visit Diagnoses Not on filedocumented in this encounter Care Teams Hammerer Relationship Specialty Start Date End Date Janeen Landon MD [address] [place], [place] [address] [place] [address] PCP - General Family Practice 12/05/23 documented as of this encounter
--- OUTSIDE RECORDS SUMMARY | 2025-02-28 14:07 | XMS_ITS | Encounter Summary ---
Author Organization [facility] Address [address] [place] [address] Care Team Providers Care Chassis Mechanic Name Role Phone Janeen Landon MD Primary Care [facility] ider Encounter Details Date Type Department Care Team (Late Contact Info) Description 04/09/1998 Outpatient Historical [facility] Pediatrics [place] [address] [facility] [place] [address] Kirit Escobar MD NO ADDRESS ON FILE Social History Tobacco Use Types Packs/Day Years Used Date Smoking Tobacco: Never Assessed Comments Unknown Sex and Gender Information Value Date Recorded Sex Assigned at Not on file 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 Gender Identity Not on file Sexual Orientation Not on file documented as of this encounter Plan of Treatment Upcoming Encounters Date Type Department Care Team (Late Contact Info) Description 09/02/2025 9:30 AM CDT Office Visit [facility] PRIMARY CARE [facility] [address] [place] [address] Janeen Landon MD [address] [place] [phone] documented as of this encounter Visit Diagnoses Not on filedocumented in this encounter Care Teams Chassis Mechanic Relationship Specialty Start Date End Date Janeen aLndon MD [address] [place], [place] [address] [place] [address] PCP - General Family Practice 12/05/23 documented as of this encounter
--- OUTSIDE RECORDS SUMMARY | 2025-02-28 14:07 | XMS_ITS | Encounter Summary ---
Author Organization [facility] Address [address] [place] [address] Care Team Providers Care Auricular Detoxification Specialist Name Role Phone Janeen Landon MD Primary Care [facility] ider Encounter Details Date Type Department Care Team (Late Contact Info) Description 05/01/2002 Outpatient Historical [facility] Pediatrics [place] [address] [facility] [place] [place] [address] Kirit Escobar MD NO ADDRESS ON FILE Social History Tobacco Use Types Packs/Day Years Used Date Smoking Tobacco: Never Assessed Comments Unknown Sex and Gender Information Value Date Recorded Sex Assigned at Not on file 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 Gender Identity Not on file Sexual Orientation Not on file documented as of this encounter Plan of Treatment Upcoming Encounters Date Type Department Care Team (Late Contact Info) Description 09/02/2025 9:30 AM CDT Office Visit [facility] CARE [facility] [address] [place] [address] Janeen Landon MD [address] [place] [phone] documented as of this encounter Visit Diagnoses Not on filedocumented in this encounter Care Teams Auricular Detoxification Specialist Relationship Specialty Start Date End Date Janeen Landon MD [address] [place], [place] [address] [place] [address] PCP - General Family Practice 12/05/23 documented as of this encounter
--- OUTSIDE RECORDS SUMMARY | 2025-02-28 14:07 | XMS_ITS | Clinical Summary ---
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 See individual assays for performing site location. CLINICAL INFORMATION [employer] Comment:None given LAST MENSTRUAL PERIOD [employer] Comment:08/26/2024 PREV PAP: [employer] Comment:NONE GIVEN PREV BX: [facility] [place] Comment:NONE GIVEN SOURCE [employer] Comment:[employer] ADEQUACY: [employer] Comment: Satisfactory for evaluation. Endocervical/transformation zone component present. PAP INTERP [employer] Comment: Cytology Results: Negative for intraepithelial lesion or malignancy. COMMENT (PAP TEST) [facility] [employer] [employer] [facility] Comment: This Pap test has been evaluated with computer assisted technology. OVEN TECHNICIAN: Shayne ospina [employer] [facility] Comment: LMT, CT(ASCP) CT screening location: [place] [address] [place] [address] EXPLANATORY NOTE [employer] [facility] Comment: EXPLANATORY NOTE: The Pap is [...] RNA, TMA, UROGENITAL NOT DETECTED NOT DETECTED [facility] NEISSERIA GONORRHOEAE RNA, TMA, UROGENITAL NOT DETECTED NOT DETECTED [facility] COMMENT INFECTIOUS DISEASE [facility] Comment: The analytical performance characteristics of this assay, when used to test SurePath(TM) specimens have been determined by [employer]. The modifications have not been cleared or approved by the FDA. This assay has been validated pursuant to the CLIA regulations and is used for clinical purposes. For additional information, please refer to https://Nextnav.Nexio/faq/QJH525 (This link is being provided for information/ educational purposes only.) TRICHOMONAS VAGINALIS,QUALITAT JOIE,PAP VIAL NOT DETECTED NOT DETECTED [facility] Comment: The analytical performance characteristics of this assay have been determined by [employer]. The modifications have not been cleared or approved by the FDA. This assay has been validated pursuant to the CLIA regulations and is used for clinical purposes. For additional information, please refer to http://Nextnav.Nexio/ faq/Trichomonastma (This link is being provided for information/ educational purposes only.) Test Performed at: [place] [address] [place] [address] Lucas [place] Genital SWAB OF ENDOCERVIX / Unknown 09/11/2024 8:39 AM CDT 09/12/2024 2:55 PM CDT Nohemi Rogel PA-C PATHOLOGY/CYTOLOGY ORDERABLES Final Result Performing Organization Address City/State/[facility] Co de Phone Number [facility] [phone] [facility] [address] [place] [address] from Last 3 Months or Most Recently Relevant to Health Maintenance Insurance BS BLUE ACCESS/TRUE BLUE PPO [facility] PPO RX [employer] Care Teams Trauma Surgeon Relationship Specialty Start Date End Date Janeen Landon MD [address] [place] [phone] PCP - General Family Practice 12/05/23
--- OUTSIDE RECORDS SUMMARY | 2025-02-28 14:07 | XMS_ITS | Encounter Summary ---
Author Organization [facility] Address [address] [place] [address] Care Team Providers Care Tractor Mechanic Name Role Phone Janeen Landon MD Primary Care [facility] ider Encounter Details Date Type Department Care Team (Late Contact Info) Description 10/11/1997 Outpatient Historical [facility] Pediatrics [place] [address] [facility] [place] [address] Kirit Escobar MD NO ADDRESS ON FILE Social History Tobacco Use Types Packs/Day Years Used Date Smoking Tobacco: Never Assessed Comments Unknown Sex and Gender Information Value Date Recorded Sex Assigned at Not on file 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 PRIMARY CARE [facility] [address] [place] [address] Janeen Landon MD [address] [place] [phone] documented as of this encounter Visit Diagnoses Not on filedocumented in this encounter Care Teams Tractor Mechanic Relationship Specialty Start Date End Date Janeen Landon MD [address] [place], [place] [address] [place] [address] PCP - General Family Practice 12/05/23 documented as of this encounter
--- OUTSIDE RECORDS SUMMARY | 2025-02-28 14:07 | XMS_ITS | Encounter Summary ---
Author Organization [facility] Address [address] [place] [address] Care Team Providers Care Special Investigator Name Role Phone Janeen Landon MD Primary Care [facility] ider Encounter Details Date Type Department Care Team (Late Contact Info) Description 10/10/2000 Outpatient Historical [facility] Pediatrics [place] [address] [facility] [place] [address] Kirit Escobar MD NO ADDRESS ON FILE Social History Tobacco Use Types Packs/Day Years Used Date Smoking Tobacco: Never Assessed Comments Unknown Sex and Gender Information Value Date Recorded Sex Assigned at Not on file Legal Sex Female 4:38 AM PLASTICS PATTERNMAKER Gender Identity Not on file Sexual Orientation Not on file documented as of this encounter Plan of Treatment Upcoming Encounters Date Type Department Care Team (Late Contact Info) Description 09/02/2025 9:30 AM CDT Office Visit [facility] PRIMARY CARE [facility] [address] [place] [address] Janeen Landon MD [address] [place] [phone] documented as of this encounter Visit Diagnoses Not on filedocumented in this encounter Care Teams Special Investigator Relationship Specialty Start Date End Date Janeen Landon MD [address] [place], [place] [address] [place] [address] PCP - General Family Practice 12/05/23 documented as of this encounter
--- OUTSIDE RECORDS SUMMARY | 2025-02-28 14:07 | XMS_ITS | Encounter Summary ---
Author Organization [facility] Address [address] [place] [address] Care Team Providers Care Bone Cooking Operator Name Role Phone Janeen Landon MD Primary Care [facility] ider Encounter Details Date Type Department Care Team (Late Contact Info) Description 04/16/2002 Outpatient Historical [facility] [place] [address] [place] [address] Kirit Escobar MD NO ADDRESS ON FILE Social History Tobacco Use Types Packs/Day Years Used Date Smoking Tobacco: Never Assessed Comments Unknown Sex and Gender Information Value Date Recorded Sex Assigned at Not on file Legal Sex Female 4:38 AM HEALTH DIRECTOR Gender Identity Not on file Sexual Orientation Not on file documented as of this encounter Plan of Treatment Upcoming Encounters Date Type Department Care Team (Late Contact Info) Description 09/02/2025 9:30 AM CDT Office Visit [facility] PRIMARY CARE [facility] [address] [place] [address] Janeen Landon MD [address] [place] [phone] documented as of this encounter Visit Diagnoses Not on filedocumented in this encounter Care Teams Bone Cooking Operator Relationship Specialty Start Date End Date Janeen Landon MD [address] [place], [place] [address] [place] [address] PCP - General Family Practice 12/05/23 documented as of this encounter
--- OUTSIDE RECORDS SUMMARY | 2025-02-28 14:07 | XMS_ITS | Encounter Summary ---
Author Organization [facility] Address [address] [place] [address] Care Team Providers Care Fast Food Team Member Name Role Phone Janeen Landon MD Primary Care [facility] ider Encounter Details Date Type Department Care Team (Late Contact Info) Description 06/05/2003 Outpatient Historical [facility] Pediatrics [place] [address] [facility] [place] [address] Kirit Escobar MD NO ADDRESS ON FILE Social History Tobacco Use Types Packs/Day Years Used Date Smoking Tobacco: Never Assessed Comments Unknown Sex and Gender Information Value Date Recorded Sex Assigned at Not on file 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 Gender Identity Not on file Sexual Orientation Not on file documented as of this encounter Plan of Treatment Upcoming Encounters Date Type Department Care Team (Late Contact Info) Description 09/02/2025 9:30 AM CDT Office Visit [facility] PRIMARY CARE [facility] [address] [place] [address] Janeen Landon MD [address] [place] [phone] documented as of this encounter Visit Diagnoses Not on filedocumented in this encounter Care Teams Fast Food Team Member Relationship Specialty Start Date End Date Janeen Landon MD [address] [place], [place] [address] [place] [address] PCP - General Family Practice 12/05/23 documented as of this encounter
--- NOTE | 2025-02-28 14:09 | ECG_ITS ---
Test Date: 2025-02-28 14:19:20 Measurements Intervals [place] Rate: 60 P: 73 [place]: 132 QRS: 87 QRSD: 102 T: 29 QT: 406 QTc: 406 Interpretive Statements SINUS RHYTHM INCOMPLETE RIGHT BUNDLE BRANCH BLOCK NONSPECIFIC ST-T WAVE ABNORMALITY- INFERIOR LEADS BORDERLINE ECG No previous ECG available for comparison Electronically Signed On 02-28-2025 14:21:39 ANIMAL SURGEON by Regulo Conn D.O.
[2025-02-28 14:54] LABS: CRP 2.9 mg/dL (<1.0)
== END 2025-02-28 13:58 | disposition home or self-care (01) ==
PROVIDERS: Visit Provider Orthopaedic Surgery
DX: S62.101A Fracture of unspecified carpal bone, right wrist, initial encounter for closed fracture (principal); X58.XXXA Exposure to other specified factors, initial encounter; Z01.818 Encounter for other preprocedural examination
CPT/HCPCS: 36415; 86140; 93005

== ENCOUNTER 2025-03-05 00:49 | Day surgery (SDC) | payer OTHER, BC, SELFPAY ==
[2025-02-28 10:54] VITALS: BMI 22.6
--- NOTE | 2025-02-28 11:05 | PC.NURSE ---
[facility] has started construction of its new state of the art ER which will open Spring 2026. With this, we anticipate parking may be a challenge for some our surgical patients and families. Parking spaces are limited but are available for all Surgical, obstetrics, and ER patients sharing this lot. If you arrive and find you are having a hard time finding a parking space, please note that we understand the challenges, please drive around the hospital and park near Hospital Entrance 1. When you enter this entrance, you can ask a volunteer to direct or take you back to the surgical waiting area to check in. We appreciate everyone?s understanding of these expected challenges while we build for your future. Report to the Outpatient Waiting Room, entrance under the green pavilion located off [address], at time _0815_ on date _[id number]_. Planned Procedure Time: _1015_.? Time changes happen often and if your time is changed the preop area will call you the afternoon before. - You and your visitor will be asked to self-screen and do not enter if you have any COVID symptoms. Please call surgeon if you need to reschedule. - A mask is optional within the hospital at this time. Patients may have clear liquids (water, carbonated beverages, clear teas, apple juice) until 3 hours prior to surgery with a maximum of 20 ounces. - No food from midnight until time of surgery and no smoking, or chewing tobacco (or any form of nicotine). No chewing gum, candy or mints. Take only the following medications with a SIP of water on the morning of surgery: ___BC pill and Hydrocodone if needed. DO NOT STOP ANY OF YOUR OTHER PRESCRIPTION MEDICATIONS PRIOR TO SURGERY EXCEPT THE FOLLOWING Hold all vitamins and supplements for 3 days per anesthesiologist. Medications to discontinue per physician Date to take last dose Please no make-up, nail yemeni, hairspray, perfume, deodorant, or body powder the day of surgery.? No jewelry (including any body piercings) or valuables the day of surgery, leave them at home.? Please take a shower or bath the night before, or the morning of, surgery with an antibacterial soap.? Wear comfortable, loose fitting clothing.? - Jewelry must be removed prior to entering the operating room.? Rings and piercings that are not removed may be cut off. - The hospital will not accept responsibility for valuables.? - Please leave all valuables, including medications, at home the day of surgery. If you are going home after surgery, a licensed package car driver must drive you home.? - NO public transportation without another adult if you receive anesthesia. - We recommend that an adult stay with you for 24 hours following discharge. - We also recommend that you do not drive, make important decision, drink alcoholic beverages, or take any drugs that were not prescribed by your health care provider for at least 24 hours after your discharge time. Follow any additional instructions given to you from your surgeon. Telephone instructions given to and asked if any additional questions and then verbalized understanding. Patient advised to call surgeon office or pre surgery nurse liaison [phone] if any additional questions.
[2025-03-05] VITALS (13 sets, daily range): BP systolic 95–132; BP diastolic 45–75; PULSE 57–74; RESP 9–20; O2SAT 95–100
--- NOTE | ~2025-03-05 | XR_ITS ---
EXAMINATION: XR elbow RT 2V DATE: 03/05/2025 14:30 INDICATION: Postsurgical pain at the right elbow post recent right wrist ORIF TECHNIQUE: Anteroposterior and lateral views of the right elbow were obtained. COMPARISON: None. FINDINGS: Alignment is normal. No fracture or joint effusion. Joint spaces are normal. There appears be extrinsic compression about the right forearm with small portion of fiberglass splinting at the distal forearm likely related to the earlier: Reduction internal fixation of a distal radial fracture which is po sitioned beyond the field of imaging. IMPRESSION: 1. No joint effusion or osseous abnormality at the right elbow. Reviewed, dictated and finalized at location A. T METAL OPERATOR
--- NOTE | ~2025-03-05 | XR_ITS ---
EXAMINATION: XR surgery orthopedic DATE: 03/05/2025 12:29 INDICATION: ORIF right wrist fracture TECHNIQUE: Frontal and lateral images of the right wrist were obtained procedure performed by Dr. Wilcox. Radiologist was not present for the imaging or procedure. The amount of fluoroscopy time used during this procedure was 1.8 minutes. The dose area product was 0.605 Gycm^2. COMPARISON: 02/27/2025 FINDINGS: Interval open reduction and volar T plate and screw internal fixation of the procedure noted mildly comminuted intra-articular fracture of the distal right radius. The alignment appears essentially anatomic with no significant fracture gap or incongruity at the articular surface. A second ulnar styloid avulsion fracture remains unfixed in essentially anatomic alignment. No new fractures identified. Joint spaces at the wrist and carpus are normal. IMPRESSION: 1. Near-anatomic alignment post T plate and screw fixation of a comminuted intra-articular fracture of the distal right radius. 2. No change in a nondisplaced avulsion fracture of the ulnar styloid process. Reviewed, dictated and finalized at location A. TY FIRE MARSHAL IMPRESSION: 1. Near-anatomic alignment post T plate and screw fixation of a comminuted intr a-articular fracture of the distal right radius. 2. No change in a nondisplaced avulsion fracture of the ulnar styloid process.
--- OUTSIDE RECORDS SUMMARY | 2025-03-05 00:56 | XMS_ITS | Encounter Summary ---
Author Organization [facility] Address [address] [place] [address] Care Team Providers Care Network And Threat Support Specialist Name Role Phone Janeen Landon MD Primary Care Prov ider Encounter Details Date Type Department Care Team (Late st Contact Info) Description 07/20/2006 Orders Only [facility] Pediatrics [place] [address] [facility] [place] [address] Kirit Escobar MD NO ADDRESS ON FILE Social History Tobacco Use Types Packs/Day Years Used Date Smoking Tobacco: Never Assessed Comments Unknown Sex and Gender Information Value Date Recorded Sex Assigned at Not on file 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 ALLERGIES: CURRENT ALLERGY [...] 09/02/2025 9:30 AM CDT Office Visit [facility] PRIMARY CARE [address] [phone] Janeen Landon MD [address] [place] [phone] documented as of this encounter Visit Diagnoses Not on filedocumented in this encounter Care Teams Network And Threat Support Specialist Relationship Specialty Start Date End Date Janeen Landon MD [address] [place] [phone] PCP - General Family Practice 12/05/23 documented as of this encounter
--- OUTSIDE RECORDS SUMMARY | 2025-03-05 00:56 | XMS_ITS | Encounter Summary ---
Author Organization [facility] Address [address] [place] [address] Care Team Providers Care Apartment Assistant Manager Name Role Phone Janeen Landon MD Primary Care [facility] ider Encounter Details Date Type Department Care Team (Late Contact Info) Description 05/13/2003 Outpatient Historical [facility] Pediatrics [place] [address] [facility] [place] [phone] Kirit Escobar MD NO ADDRESS ON FILE Social History Tobacco Use Types Packs/Day Years Used Date Smoking Tobacco: Never Assessed Comments Unknown Sex and Gender Information Value Date Recorded Sex Assigned at Not on file 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 Female 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 Gender Identity Not on file Sexual Orientation Not on file documented as of this encounter Plan of Treatment Upcoming Encounters Date Type Department Care Team (Late Contact Info) Description 09/02/2025 9:30 AM CDT Office Visit [facility] PRIMARY CARE [facility] [address] [place] [address] Janeen Landon MD [address] [place] [phone] documented as of this encounter Visit Diagnoses Not on filedocumented in this encounter Care Teams Apartment Assistant Manager Relationship Specialty Start Date End Date Janeen Landon MD [address] [place], [place] [address] [place] [address] PCP - General Family Practice 12/05/23 documented as of this encounter
--- OUTSIDE RECORDS SUMMARY | 2025-03-05 00:56 | XMS_ITS | Encounter Summary ---
Author Organization [facility] Address [address] [place] [address] Care Team Providers Care Training Assistant Name Role Phone Janeen Landon MD Primary Care [facility] ider Encounter Details Date Type Department Care Team (Late Contact Info) Description 04/23/1998 Outpatient Historical [facility] Pediatrics [place] [address] [facility] [place] [phone] Kirit Escobar MD NO ADDRESS ON FILE Social History Tobacco Use Types Packs/Day Years Used Date Smoking Tobacco: Never Assessed Comments Unknown Sex and Gender Information Value Date Recorded Sex Assigned at Not on file Legal Sex Female 4:38 AM DIRECTOR OF INDUSTRIAL RELATIONS Gender Identity Not on file Sexual Orientation Not on file documented as of this encounter Plan of Treatment Upcoming Encounters Date Type Department Care Team (Late Contact Info) Description 09/02/2025 9:30 AM CDT Office Visit [facility] PRIMARY CARE [facility] [address] [place] [address] Janeen Landon MD [address] [place] [phone] documented as of this encounter Visit Diagnoses Not on filedocumented in this encounter Care Teams Training Assistant Relationship Specialty Start Date End Date Janeen Landon MD [address] [place], [place] [address] [place] [address] PCP - General Family Practice 12/05/23 documented as of this encounter
--- OUTSIDE RECORDS SUMMARY | 2025-03-05 00:56 | XMS_ITS | Encounter Summary ---
Author Organization [facility] Address 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 Sex Female 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 BIG 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 LEAD Gender Identity Not on file Sexual Orientation Not on file documented as of this encounter Plan of Treatment Upcoming Encounters Date Type Department Care Team (Late Contact Info) Description 09/02/2025 9:30 AM CDT Office Visit [facility] PRIMARY CARE [facility] [address] [place] [address] Janeen Landon MD [address] [place] [address] documented as of this encounter Visit Diagnoses Not on filedocumented in this encounter Care Teams Patient Registration Manager Relationship Specialty Start Date End Date Janeen Landon MD [address] [place] [phone] PCP - General Family Practice 12/05/23 documented as of this encounter
--- OUTSIDE RECORDS SUMMARY | 2025-03-05 00:56 | XMS_ITS | Encounter Summary ---
Author Organization [facility] Address [address] [place] [address] Care Team Providers Care Electromedical Equipment Technician Name Role Phone Janeen Landon MD Primary Care [facility] ider Encounter Details Date Type Department Care Team (Late Contact Info) Description 07/20/2006 Outpatient Historical [facility] Pediatrics [place] [address] [facility] [place] [address] Kirit Escobar MD NO ADDRESS ON FILE Social History Tobacco Use Types Packs/Day Years Used Date Smoking Tobacco: Never Assessed Comments Unknown Sex and Gender Information Value Date Recorded Sex Assigned at Not on file 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
--- OUTSIDE RECORDS SUMMARY | 2025-03-05 00:56 | XMS_ITS | Encounter Summary ---
Author Organization [facility] Address [address] [place] [address] Care Team Providers Care Tray Worker Name Role Phone Janeen Landon MD Primary Care [facility] ider Encounter Details Date Type Department Care Team (Late Contact Info) Description 04/16/2002 Outpatient Historical [facility] Pediatrics [place] [address] [facility] [place] [phone] Kirit Escobar MD NO ADDRESS ON FILE Social History Tobacco Use Types Packs/Day Years Used Date Smoking Tobacco: Never Assessed Comments Unknown Sex and Gender Information Value Date Recorded Sex Assigned at Not on file 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 Gender Identity Not on file Sexual Orientation Not on file documented as of this encounter Plan of Treatment Upcoming Encounters Date Type Department Care Team (Late Contact Info) Description 09/02/2025 9:30 AM CDT Office Visit [facility] PRIMARY CARE [facility] [address] [place] [address] Janeen Landon MD [address] [place] [phone] documented as of this encounter Visit Diagnoses Not on filedocumented in this encounter Care Teams Tray Worker Relationship Specialty Start Date End Date Janeen Landon MD [address] [place], [place] [address] [place] [address] PCP - General Family Practice 12/05/23 documented as of this encounter
--- OUTSIDE RECORDS SUMMARY | 2025-03-05 00:56 | XMS_ITS | Encounter Summary ---
Author Organization [facility] Address [address] [place] [address] Care Team Providers Care Panel Machine Operator Name Role Phone Janeen Landon MD Primary Care [facility] ider Encounter Details Date Type Department Care Team (Late Contact Info) Description 06/05/2003 Outpatient Historical [facility] Pediatrics [place] [address] [facility] [place] [phone] Kirit Escobar MD NO ADDRESS ON FILE Social History Tobacco Use Types Packs/Day Years Used Date Smoking Tobacco: Never Assessed Comments Unknown Sex and Gender Information Value Date Recorded Sex Assigned at Not on file Legal Sex Female 4:38 AM DIRECTOR OF CONSERVATION Gender Identity Not on file Sexual Orientation Not on file documented as of this encounter Plan of Treatment Upcoming Encounters Date Type Department Care Team (Late Contact Info) Description 09/02/2025 9:30 AM CDT Office Visit [facility] PRIMARY CARE [facility] [address] [place] [address] Janeen Landon MD [address] [place] [phone] documented as of this encounter Visit Diagnoses Not on filedocumented in this encounter Care Teams Panel Machine Operator Relationship Specialty Start Date End Date Janeen Landon MD [address] [place], [place] [address] [place] [address] PCP - General Family Practice 12/05/23 documented as of this encounter
--- OUTSIDE RECORDS SUMMARY | 2025-03-05 00:56 | XMS_ITS | Encounter Summary ---
Author Organization [facility] Address [address] [place] [address] Care Team Providers Care Independent Living Specialist Name Role Phone Janeen Landon MD Primary Care [facility] ider Encounter Details Date Type Department Care Team (Late Contact Info) Description 04/26/1999 Outpatient Historical [facility] Pediatrics [place] [address] [facility] [place] [address] Kirit Escobar MD NO ADDRESS ON FILE Social History Tobacco Use Types Packs/Day Years Used Date Smoking Tobacco: Never Assessed Comments Unknown Sex and Gender Information Value Date Recorded Sex Assigned at Not on file 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 Gender Identity Not on file Sexual Orientation Not on file documented as of this encounter Plan of Treatment Upcoming Encounters Date Type Department Care Team (Late Contact Info) Description 09/02/2025 9:30 AM CDT Office Visit [facility] PRIMARY CARE [facility] [address] [place] [address] Janeen Landon MD [address] [place] [phone] documented as of this encounter Visit Diagnoses Not on filedocumented in this encounter Care Teams Independent Living Specialist Relationship Specialty Start Date End Date Janeen Landon MD [address] [place], [place] [address] [place] [address] PCP - General Family Practice 12/05/23 documented as of this encounter
--- OUTSIDE RECORDS SUMMARY | 2025-03-05 00:56 | XMS_ITS | Encounter Summary ---
Author Organization [facility] Address [address] [place] [address] Care Team Providers Care Senior Vice President Name Role Phone Janeen Landon MD Primary Care [facility] ider Encounter Details Date Type Department Care Team (Late Contact Info) Description 05/22/1998 Outpatient Historical [facility] Pediatrics [place] [address] [facility] [place] [phone] Kirit Escobar MD NO ADDRESS ON FILE Social History Tobacco Use Types Packs/Day Years Used Date Smoking Tobacco: Never Assessed Comments Unknown Sex and Gender Information Value Date Recorded Sex Assigned at Not on file 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 Gender Identity Not on file Sexual Orientation Not on file documented as of this encounter Plan of Treatment Upcoming Encounters Date Type Department Care Team (Late Contact Info) Description 09/02/2025 9:30 AM CDT Office Visit [facility] PRIMARY CARE [facility] [address] [place] [address] Janeen Landon MD [address] [place] [phone] documented as of this encounter Visit Diagnoses Not on filedocumented in this encounter Care Teams Senior Vice President Relationship Specialty Start Date End Date Janeen Landon MD [address] [place], [place] [address] [place] [address] PCP - General Family Practice 12/05/23 documented as of this encounter
--- OUTSIDE RECORDS SUMMARY | 2025-03-05 00:56 | XMS_ITS | Clinical Summary ---
Author Organization [employer] [address] [place] Address [address] [place] [address] Care Team Providers Care Senior Asic Design Engineer Name Role Phone Barbi Janeen Mo MD [...] pur e alcohol) Socially drink- not often 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 See individual assays for performing site location. CLINICAL INFORMATION [facility] Comment:None given LAST MENSTRUAL PERIOD [facility] Comment:08/26/2024 PREV PAP: [facility] Comment:NONE GIVEN PREV BX: [facility] Jane Lew Comment:NONE GIVEN SOURCE [facility] Comment:Endocervix ADEQUACY: [facility] Comment: Satisfactory for evaluation. Endocervical/transformation zone component present. PAP INTERP [facility] Comment: Cytology Results: Negative for intraepithelial lesion or malignancy. COMMENT (PAP TEST) [facility]est [facility] Comment: This Pap test has been evaluated with computer assisted technology. CONSTRUCTION SITE MANAGER: Shayne ospina [facility] Comment: LMT, CT(ASCP) CT screening location: [place] [address] [place] [address] EXPLANATORY NOTE [facility] [employer] [facility] Comment: EXPLANATORY NOTE: The Pap is [...] RNA, TMA, UROGENITAL NOT DETECTED NOT DETECTED [facility] NEISSERIA GONORRHOEAE RNA, TMA, UROGENITAL NOT DETECTED NOT DETECTED [facility] COMMENT INFECTIOUS DISEASE [facility] Comment: The analytical performance characteristics of this assay, when used to test SurePath(TM) specimens have been determined by [facility]. The modifications have not been cleared or approved by the FDA. This assay has been validated pursuant to the CLIA regulations and is used for clinical purposes. For additional information, please refer to https://Quench.BufferBox/faq/LIV494 (This link is being provided for information/ educational purposes only.) TRICHOMONAS VAGINALIS,QUALITAT JOIE,PAP VIAL NOT DETECTED NOT DETECTED [facility] Comment: The analytical performance characteristics of this assay have been determined by [facility]. The modifications have not been cleared or approved by the FDA. This assay has been validated pursuant to the CLIA regulations and is used for clinical purposes. For additional information, please refer to http://Quench.BufferBox/ faq/Trichomonastma (This link is being provided for information/ educational purposes only.) Test Performed at: [place] [address] [place] [address] Lucas MORLEY Genital SWAB OF ENDOCERVIX / Unknown 09/11/2024 8:39 AM CDT 09/12/2024 2:55 PM CDT Nohemi Rogel PA-C PATHOLOGY/CYTOLOGY ORDERABLES Final Result Performing Organization Address City/State/[facility] Co de Phone Number [facility] [phone] [facility] [address] [place] [address] from Last 3 Months or Most Recently Relevant to Health Maintenance Insurance BS BLUE ACCESS/TRUE BLUE PPO [facility] PPO RX [employer] Express Care Teams Senior Asic Design Engineer Relationship Specialty Start Date End Date Janeen Landon MD [address] [place] [phone] PCP - General Family Practice 12/05/23
--- OUTSIDE RECORDS SUMMARY | 2025-03-05 00:56 | XMS_ITS | Encounter Summary ---
Author Organization [facility] Address [address] [place] [address] Care Team Providers Care Hydrogeology Professor Name Role Phone Janeen Landon MD Primary Care [facility] ider Encounter Details Date Type Department Care Team (Late Contact Info) Description 10/10/[address] 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 Gender Identity Not on file Sexual Orientation Not on file documented as of this encounter Plan of Treatment Upcoming Encounters Date Type Department Care Team (Late Contact Info) Description 09/02/2025 9:30 AM CDT Office Visit [facility] PRIMARY CARE [facility] [address] [place] [address] Janeen Landon MD [address] [place] [phone] documented as of this encounter Visit Diagnoses Not on filedocumented in this encounter Care Teams Hydrogeology Professor Relationship Specialty Start Date End Date Janeen Landon MD [address] [place], [place] [address] [place] [address] PCP - General Family Practice 12/05/23 documented as of this encounter
--- OUTSIDE RECORDS SUMMARY | 2025-03-05 00:56 | XMS_ITS | Encounter Summary ---
Author Organization [facility] Address [address] [place] [address] Care Team Providers Care Licensed Plumber Name Role Phone Janeen Landon MD Primary Care [facility] ider Encounter Details Date Type Department Care Team (Late Contact Info) Description 11/09/1999 Outpatient Historical [facility]s [place] [address] [facility] [place] [address] Kirit Escobar MD NO ADDRESS ON FILE Social History Tobacco Use Types Packs/Day Years Used Date Smoking Tobacco: Never Assessed Comments Unknown Sex and Gender Information Value Date Recorded Sex Assigned at Not on file 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 Gender Identity Not on file Sexual Orientation Not on file documented as of this encounter Plan of Treatment Upcoming Encounters Date Type Department Care Team (Late Contact Info) Description 09/02/2025 9:30 AM CDT Office Visit [facility] PRIMARY CARE [facility] [address] [place] [address] Janeen Landon MD [address] [place] [phone] documented as of this encounter Visit Diagnoses Not on filedocumented in this encounter Care Teams Licensed Plumber Relationship Specialty Start Date End Date Janeen Landon MD [address] [place], [place] [address] [place] [address] PCP - General Family Practice 12/05/23 documented as of this encounter
--- OUTSIDE RECORDS SUMMARY | 2025-03-05 00:56 | XMS_ITS | Encounter Summary ---
Author Organization [facility] Address [address] [place] [address] Care Team Providers Care Quantitative Associate Name Role Phone Janeen Landon MD Primary Care [facility] ider Encounter Details Date Type Department Care Team (Late Contact Info) Description 05/01/2002 Outpatient Historical [facility] Pediatric[facility] [place] [address] [facility] [place] [address] Kirit Escobar MD NO ADDRESS ON FILE Social History Tobacco Use Types Packs/Day Years Used Date Smoking Tobacco: Never Assessed Comments Unknown Sex and Gender Information Value Date Recorded Sex Assigned at Not on file 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 Gender Identity Not on file Sexual Orientation Not on file documented as of this encounter Plan of Treatment Upcoming Encounters Date Type Department Care Team (Late Contact Info) Description 09/02/2025 9:30 AM CDT Office Visit [facility] PRIMARY CARE [facility] [address] [place] [address] Janeen Landon MD [address] [place] [phone] documented as of this encounter Visit Diagnoses Not on filedocumented in this encounter Care Teams Quantitative Associate Relationship Specialty Start Date End Date Janeen Landon MD [address] [place], [place] [address] [place] [address] PCP - General Family Practice 12/05/23 documented as of this encounter
--- OUTSIDE RECORDS SUMMARY | 2025-03-05 00:56 | XMS_ITS | Encounter Summary ---
Author Organization [facility] Address [address] [place] [address] Care Team Providers Care Academic Records Specialist Name Role Phone Janeen Landon MD Primary Care [facility] ider Encounter Details Date Type Department Care Team (Late Contact Info) Description 10/16/[address] 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 PRIMARY CARE [facility] [address] [place] [address] Janeen Landon MD [address] [place] [phone] documented as of this encounter Visit Diagnoses Not on filedocumented in this encounter Care Teams Academic Records Specialist Relationship Specialty Start Date End Date Janeen Landon MD [address] [place], [place] [address] [place] [address] PCP - General Family Practice 12/05/23 documented as of this encounter
--- OUTSIDE RECORDS SUMMARY | 2025-03-05 00:56 | XMS_ITS | Encounter Summary ---
Author Organization [facility] Address [address] [place] [address] Care Team Providers Care Hose Mender Name Role Phone Janeen Landon MD Primary Care [facility] ider Encounter Details Date Type Department Care Team (Late Contact Info) Description 05/29/2000 Outpatient Historical [facility] Pediatrics [place] [address] [facility] [place] [address] Kirit Escobar MD NO ADDRESS ON FILE Social History Tobacco Use Types Packs/Day Years Used Date Smoking Tobacco: Never Assessed Comments Unknown Sex and Gender Information Value Date Recorded Sex Assigned at Not on file 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 [address] [place] [address] Janeen Landon MD [address] [place] [phone] documented as of this encounter Visit Diagnoses Not on filedocumented in this encounter Care Teams Hose Mender Relationship Specialty Start Date End Date Janeen Landon MD [address] [place], [place] [address] [place] [address] PCP - General Family Practice 12/05/23 documented as of this encounter
--- OUTSIDE RECORDS SUMMARY | 2025-03-05 00:56 | XMS_ITS | Encounter Summary ---
Author Organization [facility] Address [address] [place] [address] Care Team Providers Care Fixer Boarding Room Name Role Phone Janeen Landon MD Primary Care [facility] ider Encounter Details Date Type Department Care Team (Late Contact Info) Description 01/10/2004 Outpatient Historical [facility] Pediatrics [place] [address] [facility] [place] [address] Kirit Escobar MD NO ADDRESS ON FILE Social History Tobacco Use Types Packs/Day Years Used Date Smoking Tobacco: Never Assessed Comments Unknown Sex and Gender Information Value Date Recorded Sex Assigned at Not on file 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 Gender Identity Not on file Sexual Orientation Not on file documented as of this encounter Plan of Treatment Upcoming Encounters Date Type Department Care Team (Late Contact Info) Description 09/02/2025 9:30 AM CDT Office Visit [facility] PRIMARY CARE [facility] [address] [place] [address] Janeen Landon MD [address] [place] [phone] documented as of this encounter Visit Diagnoses Not on filedocumented in this encounter Care Teams Fixer Boarding Room Relationship Specialty Start Date End Date Janeen Landon MD [address] [place], [place] [address] [place] [address] PCP - General Family Practice 12/05/23 documented as of this encounter
--- OUTSIDE RECORDS SUMMARY | 2025-03-05 00:56 | XMS_ITS | Encounter Summary ---
Author Organization [facility] Address [address] [place] [address] Care Team Providers Care Architectural Sales Consultant Name Role Phone Janeen Landon MD Primary Care [facility] ider Encounter Details Date Type Department Care Team (Late Contact Info) Description 04/09/1998 Outpatient Historical [facility] Pediatrics [place] [address] [place] [address] Kirit Escobar MD NO ADDRESS ON FILE Social History Tobacco Use Types Packs/Day Years Used Date Smoking Tobacco: Never Assessed Comments Unknown Sex and Gender Information Value Date Recorded Sex Assigned at Not on file Legal Sex Female 4:38 AM PROGRAM MANAGEMENT INTERN Gender Identity Not on file Sexual Orientation Not on file documented as of this encounter Plan of Treatment Upcoming Encounters Date Type Department Care Team (Late Contact Info) Description 09/02/2025 9:30 AM CDT Office Visit [facility] PRIMARY CARE [facility] [address] [place] [address] Janeen Landon MD [address] [place] [phone] documented as of this encounter Visit Diagnoses Not on filedocumented in this encounter Care Teams Architectural Sales Consultant Relationship Specialty Start Date End Date Janeen Landon MD [address] [place], [place] [address] [place] [address] PCP - General Family Practice 12/05/23 documented as of this encounter
--- OUTSIDE RECORDS SUMMARY | 2025-03-05 00:56 | XMS_ITS | Encounter Summary ---
Author Organization [facility] Address [address] [place] [address] Care Team Providers Care Licensed Sales Assistant Name Role Phone Janeen Landon MD Primary Care [facility] ider Encounter Details Date Type Department Care Team (Late Contact Info) Description 10/11/1997 Outpatient Historical [facility] Pediatrics [place] [address] [facility] [place] [address] Kirit Escobar MD NO ADDRESS ON FILE Social History Tobacco Use Types Packs/Day Years Used Date Smoking Tobacco: Never Assessed Comments Unknown Sex and Gender Information Value Date Recorded Sex Assigned at Not on file Legal Sex Female 4:38 AM CASE MANAGEMENT ASSOCIATE Gender Identity Not on file Sexual Orientation Not on file documented as of this encounter Plan of Treatment Upcoming Encounters Date Type Department Care Team (Late Contact Info) Description 09/02/2025 9:30 AM CDT Office [facility] PRIMARY CARE [facility] [address] [place] [address] Janeen Landon MD [address] [place] [phone] documented as of this encounter Visit Diagnoses Not on filedocumented in this encounter Care Teams Licensed Sales Assistant Relationship Specialty Start Date End Date Janeen Landon MD [address] [place], [place] [address] [place] [address] PCP - General Family Practice 12/05/23 documented as of this encounter
--- OUTSIDE RECORDS SUMMARY | 2025-03-05 00:56 | XMS_ITS | Encounter Summary ---
Author Organization [facility] Address 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 Gender Identity Not on file Sexual Orientation Not on file documented as of this encounter Plan of Treatment Upcoming Encounters Date Type Department Care Team (Late Contact Info) Description 09/02/2025 9:30 AM CDT Office Visit [facility] [address] [address] Janeen Landon MD [address] [place] [phone] documented as of this encounter Visit Diagnoses Diagnosis Injury, other and unspecified, shoulder and upper arm- Primary documented in this encounter Care Teams Systematic Theology Professor Relationship Specialty Start Date End Date Janeen Landon MD [address] [place] [address] PCP - General Family Practice 12/05/23 documented as of this encounter
--- OUTSIDE RECORDS SUMMARY | 2025-03-05 00:56 | XMS_ITS | Encounter Summary ---
Author Organization [facility] Address [address] [place] [address] Care Team Providers Care Marketing Instructor Name Role Phone Janeen Landon MD Primary Care 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 Gender Identity Not on file Sexual Orientation Not on file documented as of this encounter Plan of Treatment Upcoming Encounters Date Type Department Care Team (Late Contact Info) Description 09/02/2025 9:30 AM CDT Office Visit [facility] [address] [place] [address] Janeen Landon MD [address] [place] [phone] documented as of this encounter Visit Diagnoses Not on filedocumented in this encounter Care Teams Marketing Instructor Relationship Specialty Start Date End Date aJneen Landon MD [address] [place], [place] [address] [place] [address] PCP - General Family Practice 12/05/23 documented as of this encounter
--- OUTSIDE RECORDS SUMMARY | 2025-03-05 00:56 | XMS_ITS | Encounter Summary ---
Author Organization [facility] Address 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 Gender Identity Not on file Sexual Orientation Not on file documented as of this encounter Plan of Treatment Upcoming Encounters Date Type Department Care Team (Late Contact Info) Description 09/02/2025 9:30 AM CDT Office Visit [facility] PRIMARY CARE [facility] [address] [place] [address] Janeen Landon MD [address] [place] [phone] documented as of this encounter Visit Diagnoses Not on filedocumented in this encounter Care Teams Cone Trucker Relationship Specialty Start Date End Date Janeen Landon MD [address] [place], [place] [address] [place] [address] PCP - General Family Practice 12/05/23 documented as of this encounter
--- OUTSIDE RECORDS SUMMARY | 2025-03-05 00:56 | XMS_ITS | Clinical Summary ---
Author Organization [facility] Address [address] [facility] [place] [address] Care Team Providers Care Driver Material Handler Name Role Phone Cesilia Contreras MD Primary Care Provider [phone] Source Comments [facility],non-owned Affiliates and Associated Physician Practices is amultiple site organization consisting of ambulatory clinics and hospital sitesin [place], [place], [place] and [place]. This disclosure is being madepursuant to the Care Everywhere program and may not contain all information available regarding this patient. Last updated 17.[facility] Allergies No known active allergies Immunizations Immunization Administration Dates Next Due INFLUENZA VACCINE, QUADR. (F LUZONE; FLULAVAL; FLUARIX; AFLURIA QUADRIVALENT; 6MO+), 0.5 ML (IIV4) 01/09/2017 Social History Tobacco Use Types Packs/Day Years Used Date Smoking Tobacco: Never Assessed Comments Unknown Sex and Gender Information Value Date Recorded Sex Assigned at Not on file Legal Sex Female 5:19 AM RECORDS MANAGEMENT CLERK Gender Identity Not on file Sexual [...] complete this topic Insurance ANTHEM Care Teams Driver Material Handler Relationship Specialty Start Date End Date Cesilia Contreras MD PCP - General Family Medicine 01/09/17
--- OUTSIDE RECORDS SUMMARY | 2025-03-05 00:56 | XMS_ITS | Encounter Summary ---
Author Organization [facility] Address [address] [place] [address] Care Team Providers Care Manufacturing Project Manager Name Role Phone Janeen Landon MD Primary Care [facility] ider Encounter Details Date Type Department Care Team (Late Contact Info) Description 02/28/1998 Outpatient Historical [facility] Pediatrics [place] [address] [facility] [place] [address] Ngozi Turcios MD [address] [address] Social History Tobacco Use Types Packs/Day Years Used Date Smoking Tobacco: Never Assessed Comments Unknown Sex and Gender Information Value Date Recorded Sex Assigned at Not on file Legal Sex Female 4:38 AM SENIOR OPERATIONS ANALYST Gender Identity Not on file Sexual Orientation Not on file documented as of this encounter Plan of Treatment Upcoming Encounters Date Type Department Care Team (Late st Contact Info) Description 09/02/2025 9:30 AM CDT Office Visit [facility] PRIMARY CARE [address] [address] Janeen Landon MD [address] [place] [phone] documented as of this encounter Visit Diagnoses Not on filedocumented in this encounter Care Teams Manufacturing Project Manager Relationship Specialty Start Date End Date Janeen Landon MD [address] [place] [address] PCP - General Family Practice 12/05/23 documented as of this encounter
--- OUTSIDE RECORDS SUMMARY | 2025-03-05 00:56 | XMS_ITS | Encounter Summary ---
Author Organization [facility] Address [address] [place] [address] Care Team Providers Care Cable Splicer Assistant Name Role Phone Janeen Landon MD Primary Care [facility] ider Encounter Details Date Type Department Care Team (Late Contact Info) Description 12/22/1998 Outpatient Historical [facility] Pediatrics [place] [address] [facility] [place] [place] [address] Kirit Escobar MD NO ADDRESS ON FILE Social History Tobacco Use Types Packs/Day Years Used Date Smoking Tobacco: Never Assessed Comments Unknown Sex and Gender Information Value Date Recorded Sex Assigned at Not on file 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 Gender Identity Not on file Sexual Orientation Not on file documented as of this encounter Plan of Treatment Upcoming Encounters Date Type Department Care Team (Late Contact Info) Description 09/02/2025 9:30 AM CDT Office Visit [facility] [address] [place] [address] Janeen Landon MD [address] [place] [phone] documented as of this encounter Visit Diagnoses Not on filedocumented in this encounter Care Teams Cable Splicer Assistant Relationship Specialty Start Date End Date Janeen Landon MD [address] [place], [place] [address] [place] [address] PCP - General Family Practice 12/05/23 documented as of this encounter
--- OUTSIDE RECORDS SUMMARY | 2025-03-05 00:56 | XMS_ITS | Encounter Summary ---
Author Organization [facility] Address [address] [place] [address] Care Team Providers Care Roller Pneumatic Name Role Phone Janeen Landon MD Primary Care [facility] ider Encounter Details Date Type Department Care Team (Late Contact Info) Description 03/28/1998 Outpatient Historical [facility] Pediatrics [place] [address] [facility] [place] [address] Kirit Escobar MD NO ADDRESS ON FILE [...] [facility] PRIMARY CARE [facility] [address] [place] [address] Janeen Landon MD [address] [place] [phone] documented as of this encounter Visit Diagnoses Not on filedocumented in this encounter Care Teams Roller Pneumatic Relationship Specialty Start Date End Date Janeen Lanodn MD [address] [place], [place] [address] [place] [address] PCP - General Family Practice 12/05/23 documented as of this encounter
--- OUTSIDE RECORDS SUMMARY | 2025-03-05 00:56 | XMS_ITS | Encounter Summary ---
Author Organization [facility] Address [address] [place] [address] Care Team Providers Care Division Operations Manager Name Role Phone Janeen Landon MD Primary Care Prov ider Encounter Details Date Type Department Care Team (Late st Contact Info) Description 07/25/2006 Orders Only [facility] Pediatrics [place] [address] [facility] [address] [place] [address] Kirit Escobar MD NO ADDRESS ON FILE Social History Tobacco Use Types Packs/Day Years Used Date Smoking Tobacco: Never Assessed Comments Unknown Sex and Gender Information Value Date Recorded Sex Assigned at Not on file 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 Gender Identity Not on file Sexual Orientation Not on file documented as of this encounter Progress Notes * Kirit Escobar MD - 08/02/2007 10:23 AM CDT TIME:10:36 am PATIENT`S HOME PHONE: mom PATIENT`S WORK PHONE: PATIENT`S INSURANCE: [employer] [facility] WHO TOOK THE CALL: Nell Keith M [...] 09/02/2025 9:30 AM CDT Office Visit [address] [address] Janeen Landon MD [address] [place] [phone] documented as of this encounter Visit Diagnoses Not on filedocumented in this encounter Care Teams Division Operations Manager Relationship Specialty Start Date End Date Janeen Landon MD [address] [place] [phone] PCP - General Family Practice 12/05/23 documented as of this encounter
--- OUTSIDE RECORDS SUMMARY | 2025-03-05 00:57 | XMS_ITS | Encounter Summary ---
Author Organization [facility] Address [address] [place] [address] Care Team Providers Care Veterinary Toxicologist Name Role Phone Janeen Ladnon MD Primary Care [facility] ider Encounter Details Date Type Department Care Team (Late Contact Info) Description 06/30/2003 Outpatient Historical [facility] Pediatrics [place] [address] [facility] [place] [address] Kirit Escobar MD NO ADDRESS ON FILE Social History Tobacco Use Types Packs/Day Years Used Date Smoking Tobacco: Never Assessed Comments Unknown Sex and Gender Information Value Date Recorded Sex Assigned at Not on file 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 Gender Identity Not on file Sexual Orientation Not on file documented as of this encounter Plan of Treatment Upcoming Encounters Date Type Department Care Team (Late Contact Info) Description 09/02/2025 9:30 AM CDT Office Visit [facility] PRIMARY CARE [facility] [address] [place] [address] Janeen Landon MD [address] [place] [phone] documented as of this encounter Visit Diagnoses Not on filedocumented in this encounter Care Teams Veterinary Toxicologist Relationship Specialty Start Date End Date Janeen Landon MD [address] [place], [place] [address] [place] [address] PCP - General Family Practice 12/05/23 documented as of this encounter
--- OUTSIDE RECORDS SUMMARY | 2025-03-05 00:57 | XMS_ITS | Encounter Summary ---
Author Organization [facility] Address 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 Gender Identity Not on file Sexual Orientation Not on file documented as of this encounter Plan of Treatment Upcoming Encounters Date Type Department Care Team (Late Contact Info) Description 09/02/2025 9:30 AM CDT Office Visit [facility] PRIMARY CARE [facility] [address] [place] [address] Janeen Landon MD [address] [place] [phone] documented as of this encounter Visit Diagnoses Not on filedocumented in this encounter Care Teams Baccarat Dealer Relationship Specialty Start Date End Date Janeen Landon MD [address] [place], [place] [address] [place] [address] PCP - General Family Practice 12/05/23 documented as of this encounter
--- OUTSIDE RECORDS SUMMARY | 2025-03-05 00:57 | XMS_ITS | Encounter Summary ---
Author Organization [facility] Address [address] [place] [address] Care Team Providers Care Tape Recording Machine Operator Name Role Phone Janeen Landon MD Primary Care [facility] ider Encounter Details Date Type Department Care Team (Late Contact Info) Description 02/07/2005 Outpatient Historical [facility] [place] [address] [place] [id number] Daniel Leong MD NO ADDRESS ON FILE Social History Tobacco Use Types Packs/Day Years Used Date Smoking Tobacco: Never Assessed Comments Unknown Sex and Gender Information Value Date Recorded Sex Assigned at Not on file Legal Sex Female 4:38 AM DIRECTOR OF ACQUISITIONS Gender Identity Not on file Sexual Orientation Not on file documented as of this encounter Last Filed Vital Signs Vital Sign Reading Time Taken Comments Blood Pressure - - Pulse - - Temperature 36.2 C (97.2 F) 02/07/2005 7:50 AM DIRECTOR OF ACQUISITIONS Respiratory Rate - - Oxygen Saturation - - Inhaled Oxygen Concentration - - Weight 24.6 kg (54 lb 4.8 oz) 02/07/2005 7:50 AM DIRECTOR OF ACQUISITIONS Height - - Body Mass Index - - documented in this encounter Plan of Treatment Upcoming Encounters Date Type Department Care Team (Late Contact Info) Description 09/02/2025 9:30 AM CDT Office Visit [facility] [address] [id number] Janeen Landon MD [address] [place] [phone] documented as of this encounter Visit Diagnoses Not on filedocumented in this encounter Care Teams Tape Recording Machine Operator Relationship Specialty Start Date End Date Janeen Landon MD [address] [place] [phone] PCP - General Family Practice 12/05/23 documented as of this encounter
--- OUTSIDE RECORDS SUMMARY | 2025-03-05 00:57 | XMS_ITS | Clinical Summary ---
Author Organization [email or web address] [facility] Address [address] [place] [address] Care Team Providers Care Orthopaedic Doctor Name Role Phone No, Pcp ETL DATABASE DEVELOPER Primary Care Provider Unavailabl e Social History Tobacco Use Types Packs/Day Years Used Date Smoking Tobacco: Never Assessed Comments Unknown Sex and Gender Information Value Date Recorded Sex Assigned at Not on file Legal Sex Female 9:27 PM EST Gender Identity Not on file Sexual Orientation Not on file Plan of Treatment Not on file Medical Devices Not on file Care Teams Orthopaedic Doctor Relationship Specialty Start Date End Date No, Pcp, ETL DATABASE DEVELOPER N/A Do not use PCP - General Family Medicine 03/31/20
[2025-03-05] MEDS: LACTATED RINGERS 1,000 ML 30 ML IV CONT ×2 (09:20→11:54)
[2025-03-05] MEDS: KETOROLAC 15 MG/ML VIAL (*BKC) IV PUSH ×2 (09:21→11:38)
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
[2025-03-05] MEDS: ACETAMINOPHEN 500 MG TABLET 1000 MG PO (10:10)
--- NOTE | 2025-03-05 10:13 | SUR.PREOP ---
SHAVE AND SCRUB DEFERRED D/T SPLINT.
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
[2025-03-05 10:14] LABS: BEDSIDEPREGUCG Negative (Negative)
--- NOTE | 2025-03-05 10:24 | WPDANESEPPF ---
Anes - Initial Pre Proc Eval Procedure: Operation Date: 03/05/25 10:15 Proposed Procedures p Open Reduction Internal Fixation Right Wrist - Pablo Wilcox MD Date/Time: 03/05/25 10:24 Surgeon: Pablo Wilcox MD Pre Op Diagnosis: right wrist fracture Patient Data Age: 29 Gender: F Height: 1.68 m Weight: 61.35 kg Allergies Allergy/AdvReac Type Severity Reaction Status Date / Time No Known Allergies Allergy Verified 03/05/25 08:54 Home Medications ?Medication ?Instructions ?Recorded ?Confirmed ?Type norethindrone 1 mg-ethinyl 1 tablet PO DAILY 02/26/24 03/05/25 History estradiol 20 mcg (21)-iron 75 mg (7) tablet (Aurovela Fe 1-20 (28)) cetirizine 10 mg tablet (24Hour 10 mg PO DAILY 02/28/25 03/05/25 History Allergy) hydrocodone 5 mg-acetaminophen 325 1 tablet PO Q6H PRN pain 02/28/25 03/05/25 History mg tablet Laboratory Tests 03/05/25 08:55 POC Urine HCG, Qual Negative (Negative) Patient hx anesthesia problems: none Family hx anesthesia problems: none Results Review: All pre-operative results and documents have been reviewed as part of the pre-operative evaluation. [facility] Past Medical History Medical History Allergies Anxiety Social History Social History Smokeless tobacco user: other Additional smoking assessment comments: Lyudmila enamorado Alcohol intake: current Drinks per week: 2 Living arrangements: with family Spiritual care concerns: No Anes - Eval Final PreProcedure Day of Procedure 03/05/25 10:24 Patient weight: normal Heart: regular rate and rhythm Lungs: clear to auscultation Airway: Mallampati scale class II Neurological: alert and oriented Last oral intake: >/= 8 hours ASA classification: II Emergent: no Anesthetic plan: proceed Anesthesia type and monitoring: general LMA and standard monitoring Results Review: All pre-operative results and documents have been reviewed as part of the pre-operative evaluation. Informed Consent: The patient's anesthetic plan and its attendant risks and benefits were discussed with the patient/family/POA. Questions were solicited and answers provided to the satisfaction of the patient/family/POA.
[2025-03-05] MEDS: ceFAZolin 2 GM in SODIUM CHLORIDE 0.9% IV 50 ML 100 ML IVPB (10:30)
[2025-03-05] MEDS: LIDO 1%/EPINEPHRINE 1:100,000 50 ML VIAL 20 ML INFILTRATE (11:11)
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
[2025-03-05] MEDS: fentaNYL CITRATE INJ (*CRX) 100 MCG/2 ML VIAL 25 MCG IV PUSH ×8 (12:21→12:50)
[2025-03-05] MEDS: HYDROmorphone HCL INJ (*CRX) 1 MG/ML SYR IV PUSH ×3 (12:55→14:35)
[2025-03-05] MEDS: oxyCODONE HCL (*CRX) 5 MG TAB IR PO (13:43)
[2025-03-05] MEDS: diazePAM INJ (*CRX) 10 MG/2 ML SYRINGE 2.5 MG IV PUSH (15:26)
== END 2025-03-05 16:15 | disposition home or self-care (01) ==
PROVIDERS: Visit Provider Orthopaedic Surgery
PROC: (CPT 25575; principal; 2025-03-05 10:15)
DX: S52.571A Other intraarticular fracture of lower end of right radius, initial encounter for closed fracture (principal); V49.9XXA Car occupant (driver) (passenger) injured in unspecified traffic accident, initial encounter
CPT/HCPCS: 25609; 73070; 99199; J0690; A9270; C1713; J1100; J1171; J1885; J2004; J2250; J2270; J2405; J2704; J3010; J3360; J7120